=== PATIENT | female | born 1970 | race Caucasian/White ===

== ENCOUNTER 2017-03-30 10:35 | Inpatient (IN) | payer BC ==
[2017-03-30] MEDS ORDERED: ONDANSETRON HCL IV 4 MG/2 ML VIAL IVP ONE ×2 (11:07→13:29)
[2017-03-30] MEDS ORDERED: 0.9 % SODIUM CHLORIDE 1,000 ML BAG IV ONE (11:08)
[2017-03-30] MEDS ORDERED: PROMETHAZINE HCL 25 MG in 0.9 % SODIUM CHLORIDE 100ML 50 ML IVP ONE (11:09)
--- NOTE | 2017-03-30 11:17 | Emergency Department Record ---
History of Present Illness - General Chief complaint: Nausea, Vomiting, Diarrhea Stated complaint: ABD PAIN/VOMITING Time Seen by Provider: 03/30/17 11:07 Source: Patient, RN notes reviewed Mode of Arrival: Wheelchair - History of Present Illness Initial comments: epigastric abd pain and vomiting started at 7 am today. Diarrhea time 50 times since 7am. She smokes marijuana daily. Primary is Dr. Rober NOLASCO complaint: Abdominal pain, Vomiting Onset/Timin -: Hour(s) Description of Vomiting: Food contents, Watery, Other Associated Abdominal Pain: Yes Location: Epigastric Quality: Other Consistency: Constant Worsens with: None Associated Symptoms: Dysuria, Nausea/vomiting, Weakness - Related Data Home Medications Medication Instructions Recorded Confirmed Last Taken Lactobacillus Combination No.4 1 each PO DAILY cap 01/11/16 03/30/17 03/29/17 [Probiotic] Multivitamin [One Daily 1 each PO DAILY tab 01/11/16 03/30/17 03/29/17 Multivitamin] Insulin NPH Human Isophane 30 unit SQ BID 03/30/17 03/30/17 03/29/17 [Humulin N] Allergies Allergy/AdvReac Type Severity Reaction Status Date / Time No Known Allergies Allergy Unverified 01/24/16 16:43 Travel Screening - Travel/Exposure Within Last 30 Days Have you traveled within the last 30 days?: No - Travel/Exposure Within Last Year Have you traveled outside the [place] in the last year?: No - Additonal Travel Details Have you been exposed to anyone with a communicable illness?: No - Travel Symptoms Symptom Screening: None Review of Systems Reviewed: No additional complaints except as noted below Constitutional: Reports: As per HPI. Denies: Chills, Fever, Malaise, Night sweats, Weakness, Weight change Eyes: Reports: As per HPI. Denies: Eye discharge, Eye pain, Photophobia, Vision change ENT: Reports: As per HPI. Denies: Congestion, Dental pain, Ear pain, Epistaxis , Hearing loss, Throat pain Respiratory: Reports: As per HPI. Denies: Cough, Dyspnea, Hemoptysis, Stridor, Wheezes Cardiovascular: Reports: As per HPI. Denies: Arrhythmia, Chest pain, Dyspnea on exertion, Edema, Murmurs, Orthopnea, Palpitations, Paroxysmal nocturnal dyspnea, Rheumatic Fever, Syncope Endocrine: Reports: As per HPI. Denies: Fatigue, Heat or cold intolerance, Polydipsia, Polyuria Gastrointestinal: Reports: As per HPI, Abdominal pain, Diarrhea, Nausea, Vomiting. Denies: Constipation, Hematemesis, Hematochezia, Melena Genitourinary: Reports: As per HPI. Denies: Abnormal menses, Discharge, Dyspareunia, Dysuria, Frequency, Hematuria, Incontinence, Retention, Urgency Musculoskeletal: Reports: As per HPI. Denies: Arthralgia, Back pain, Gout, Joint swelling, Myalgia, Neck pain Skin: Reports: As per HPI. Denies: Bruising, Change in color, Change in hair/ nails, Lesions, Pruritus, Rash Neurological: Reports: As per HPI. Denies: Abnormal gait, Confusion, Headache, Numbness, Paresthesias, Seizure, Tingling, Tremors, Vertigo, Weakness Psychiatric: Reports: As per HPI. Denies: Anxiety, Auditory hallucinations, Depression, Homicidal thoughts, Suicidal thoughts, Visual hallucinations Hematological/Lymphatic: Reports: As per HPI. Denies: Anemia, Blood Clots, Easy bleeding, Easy bruising, Swollen glands Past Medical History - SOCIAL HISTORY Smoking Status: Former smoker Alcohol Use: Rare Drug Use: Heavy Drug Use Detail:: Marijuana - RESPIRATORY Hx Respiratory Disorders: No - CARDIOVASCULAR Hx Cardio Disorders: Yes Hx Hypertension: Yes - NEURO Hx Neuro Disorders: No - GI Hx GI Disorders: Yes Hx Irritable Bowel: Yes - Hx Genitourinary Disorders: Yes Hx Renal Disease: Yes - ENDOCRINE Hx Endocrine Disorders: Yes Hx Diabetes: Yes - MUSCULOSKELETAL Hx Musculoskeletal Disorders: No - PSYCH Hx Psych Problems: Yes Hx Anxiety: Yes Hx Depression: Yes Family Medical History Any Significant Family History?: No Physical Exam - General General Appearance: Alert, Oriented x3, Cooperative, Moderate distress - Head Head exam: Normal inspection - Eye Eye exam: Normal appearance, PERRL Pupils: Normal accommodation - ENT ENT exam: Normal exam, Mucous membranes moist, Normal external ear exam, Normal orophraynx, TM's normal bilaterally Ear exam: Normal external inspection. negative: External canal tenderness Nasal Exam: Normal inspection. negative: Discharge, Sinus tenderness Mouth exam: Normal external inspection, Tongue normal Teeth exam: Normal inspection. negative: Dental caries Throat exam: Normal inspection. negative: Tonsillar erythema, Tonsillar exudate - Neck Neck exam: Normal inspection, Full ROM. negative: Tenderness - Respiratory Respiratory exam: Normal lung sounds bilaterally. negative: Respiratory distress - Cardiovascular Cardiovascular Exam: Regular rate, Normal rhythm, Normal heart sounds - GI/Abdominal GI/Abdominal exam: Soft, Normal bowel sounds, Tenderness (right upper quad pain) . negative: Distended, Guarding, Rebound, Rigid - Rectal Rectal exam: Deferred - exam: Deferred - Extremities Extremities exam: Normal inspection, Full ROM, Normal capillary refill. negative: Tenderness - Back Back exam: Reports: Normal inspection, Full ROM. Denies: Muscle spasm, Rash noted, Tenderness - Neurological Neurological exam: Alert, Normal gait, Oriented X3, Reflexes normal - Psychiatric Psychiatric exam: Normal affect, Normal mood - Skin Skin exam: Dry, Intact, Normal color, Warm Course doing some better Medical Decision Making - Data Complexity MDM Data: Labs Ordered and/or Reviewed, X-Ray Ordered and/or Reviewed - Lab Data Result diagrams: 03/30/17 11:25 03/30/17 11:25 Disposition Clinical Impression: Right upper quadrant pain, Dehydration Vomiting Qualifiers: Vomiting type: unspecified Vomiting Intractability: intractable Nausea presence : with nausea Qualified Code(s): R11.2 - Nausea with vomiting, unspecified Diabetes Qualifiers: Diabetes mellitus type: type 1 Diabetes mellitus complication status: without complication Qualified Code(s): E10.9 - Type 1 diabetes mellitus without complications Decision to Admit: Admit from ER Condition: (2) Stable Forms: Patient Portal Access Time of Disposition: 17:37 Quality - Quality Measures Quality Measures: N/A - Blood Pressure Screening Does Patient Have Any of the Following: No Blood Pressure Classification: Pre-Hypertensive BP Reading Systolic Measurement: 176 Diastolic Measurement: 81 Screening for High Blood Pressure: < Pre-Hypertensive BP, F/U Documented > [ [id number]] Pre-Hypertensive Follow-up Interventions: Referral to alternative/primary care provider.
[2017-03-30] MEDS ORDERED: HYDROMORPHONE HCL 1MG/ML **SYRINGE IVP ONE ×2 (11:21→15:49)
[2017-03-30 11:28] LABS: BASO % 0.1 % (0-6); EOS % 0.2 % (0-6); HEMOGLOBIN 15.8 gm/dl (11.6-16.0); LYMPH % 5.9 % (16-45); MEAN CELL VOLUME 86.6 fl (81-97); MEAN CORPUSCULAR HEMOGLOBIN 29.8 pg (27-33); MEAN CORPUSCULAR HGB CONC 34.3 g/dl (32-36); MEAN PLATELET VOLUME 10.8 fl (7.4-10.4); MONO % 2.8 % (0-9); PLATELET COUNT 411 K/uL (130-400); RED BLOOD COUNT 5.31 M/uL (3.80-5.40); RED CELL DISTRIBUTION WIDTH 12.6 % (11.5-14.5)
[2017-03-30 11:32] LABS: WHITE BLOOD COUNT W/O DIFF 33.2 K/uL (4.2-12.2)
[2017-03-30 11:40] LABS: ALBUMIN 5.4 gm/dL (3.5-5.0); ALKALINE PHOSPHATASE 86 U/L (38-126); ALT/SGPT 33 U/L (9-52); ANION GAP 22.2 (7-16); AST/SGOT 20 U/L (14-36); BILIRUBIN,TOTAL 0.69 mg/dL (0.2-1.3); BLOOD UREA NITROGEN 16 mg/dL (7-17); CARBON DIOXIDE 13.8 mmol/L (22-30); CREATININE 0.7 mg/dL (0.52-1.04); EST GLOMERULAR FILTRATION RATE > 60 ml/min; GLUCOSE,RANDOM 428 mg/dL (70-110); LIPASE 34 U/L (23-300); TOTAL PROTEIN 9.5 gm/dL (6.3-8.2)
[2017-03-30] MEDS ORDERED: HUMULIN R 100 UNIT/ML VIAL IV SCH (13:00)
[2017-03-30] MEDS ORDERED: SUGAMMADEX SODIUM 200 MG/2 ML VIAL IV ONE (14:00)
[2017-03-30 14:08] LABS: ACETONE,SERUM NEGATIVE (NEGATIVE)
[2017-03-30 14:44] LABS: URINE APPEARANCE SL CLOUDY; URINE BILIRUBIN NEGATIVE (NEGATIVE); URINE BLOOD NEGATIVE (NEGATIVE); URINE COLOR YELLOW; URINE KETONE 40 mg/dL (NEGATIVE); URINE LEUKOCYTE ESTERASE NEGATIVE (NEGATIVE); URINE NITRITE POSITIVE (NEGATIVE); URINE PROTEIN NEGATIVE (NEGATIVE); URINE UROBILINOGEN 0.2 E.U./dL (0.20 - 1.00)
[2017-03-30 14:45] LABS: URINE GLUCOSE (UA) >=1000 mg/dL (NEGATIVE)
[2017-03-30 14:48] LABS: HCG,QUALITATIVE URINE NEGATIVE (NEGATIVE)
[2017-03-30 14:55] LABS: URINE BACTERIA 1+; URINE EPITHELIAL CELLS 0 - 2 (FEW); URINE RBC NONE SEEN (NONE SEEN); URINE WBC NONE SEEN (0-2/hpf)
[2017-03-30] MEDS ORDERED: METOCLOPRAMIDE HCL 10 MG/2 ML VIAL IVP ONE (15:49)
[2017-03-30] MEDS ORDERED: 0.9 % SODIUM CHLORIDE 1000ML 1,000 ML IV PRN (15:54)
[2017-03-30] MEDS ORDERED: ERTAPENEM SODIUM 1 G in 0.9 % SODIUM CHLORIDE 100ML 100 ML IVPB ONE (17:29)
[2017-03-30] MEDS ORDERED: SOD CHLOR 0.9% WITH KCL 40MEQ 40 MEQ/1,000 ML IV.SOLN IV ONE (17:34)
[2017-03-30] MEDS ORDERED: ONDANSETRON HCL IV 4 MG/2 ML VIAL IVP PRN (17:43)
[2017-03-30] MEDS ORDERED: HYDROMORPHONE HCL 1MG/ML **SYRINGE IVP PRN (17:43)
[2017-03-30] MEDS ORDERED: METOCLOPRAMIDE HCL 10 MG/2 ML VIAL IVP PRN (17:55)
[2017-03-30] MEDS ORDERED: VENLAFAXINE ER 75 MG CAPSULE PO SCH (18:00)
[2017-03-30] MEDS: POTASSIUM CHLORIDE/D5-0.9%NACL 20 MEQ/1,000 ML BAG IV SCH (21:03)
[2017-03-30] MEDS ORDERED: ZOLPIDEM TARTRATE 5 MG TABLET PO SCH (22:00)
[2017-03-31] MEDS: POTASSIUM CHLORIDE/D5-0.9%NACL 20 MEQ/1,000 ML BAG IV SCH ×2 (01:47→04:39)
[2017-03-31 06:26] LABS: BASO % 0.1 % (0-6); EOS % 1.6 % (0-6); GRAN % 77.4 % (47-80); HEMATOCRIT 34.8 % (35.0-47.0); LYMPH % 17.5 % (16-45); MEAN CELL VOLUME 87.7 fl (81-97); MEAN CORPUSCULAR HEMOGLOBIN 30.2 pg (27-33); MEAN CORPUSCULAR HGB CONC 34.5 g/dl (32-36); MONO % 3.4 % (0-9); PLATELET COUNT 303 K/uL (130-400); RED BLOOD COUNT 3.97 M/uL (3.80-5.40); RED CELL DISTRIBUTION WIDTH 12.5 % (11.5-14.5); WHITE BLOOD COUNT W/O DIFF 11.3 K/uL (4.2-12.2)
[2017-03-31 06:37] LABS: ANION GAP 5.9 (7-16); BLOOD UREA NITROGEN 8 mg/dL (7-17); CARBON DIOXIDE 21.1 mmol/L (22-30); CREATININE 0.5 mg/dL (0.52-1.04); EST GLOMERULAR FILTRATION RATE > 60 ml/min; GLUCOSE,RANDOM 232 mg/dL (70-110); LIPASE 129 U/L (23-300)
--- NOTE | 2017-03-31 07:15 | CT SCAN REPORT ---
EXAM: CT OF THE ABDOMEN AND PELVIS WITHOUT CONTRAST HISTORY: MID ABDOMINAL PAIN AND FLANK PAIN. TECHNIQUE: Routine noncontrast CT images of the abdomen and pelvis were obtained. Comparison: None. FINDINGS: The visualized lung bases are unremarkable. The liver, gallbladder, pancreas, spleen, and adrenals have a normal noncontrast appearance. No renal or ureteral calculi or hydronephrosis. There are a few scattered colonic diverticula without evidence of diverticulitis. The appendix has a normal noncontrast appearance. The bowel is normal in caliber. The bladder is unremarkable. The uterus is present. The aorta is normal in caliber. No abdominal or pelvic lymphadenopathy. No acute osseous abnormality. IMPRESSION: NO ACUTE INTRAABDOMINAL OR PELVIC ABNORMALITY. SPECIFICALLY, NO RENAL OR URETERAL CALCULI OR HYDRONEPHROSIS. JOB NUMBER: [id number] MTDD
[2017-03-31] MEDS: NOVOLOG FLEXPEN (INSULIN ASPART) 100 UNITS/ML SQ SCH ×3 (09:36→18:00)
[2017-03-31] MEDS ORDERED: IBUPROFEN 600 MG TABLET PO PRN (09:37)
[2017-03-31] MEDS ORDERED: VENLAFAXINE ER 75 MG CAPSULE PO SCH (10:00)
[2017-03-31] MEDS ORDERED: LISINOPRIL 5 MG TABLET PO SCH (10:00)
[2017-03-31] MEDS ORDERED: ROCURONIUM BROMIDE 50MG/5ML VIAL IV ONE (14:00)
[2017-03-31] MEDS ORDERED: LABETALOL HCL 5MG/ML, 20ML VIAL IVPB ONE (14:00)
[2017-03-31] MEDS ORDERED: DEXAMETHASONE 4 MG/ML 1ML VIAL IVP ONE (14:00)
[2017-03-31] MEDS ORDERED: DIPHENHYDRAMINE HCL 25 MG CAPSULE PO ONE (14:18)
--- NOTE | 2017-03-31 16:07 | History & Physical ---
History of Present Illness - Date of Service Date of Service for History & Physical: 03/31/17 - History of Present Illness Admitting Diagnosis: elevated wbc. right upper quad pain. diabetes mellitus uncontrolled. dehydration. vomiting. possible gastroparesis History of Present Illness: 46 y old female admitted for worsening RUQ pain. Admitted with an elevated WBC count and started on entapenem. Surgery consulted and patient was boarded for surgery on 03/31. Tolerated procedure well. Currently ensuring adequate pain control and advancing of diet prior to discharge. Travel Screening - Travel/Exposure Within Last 30 Days Have you traveled within the last 30 days?: No - Travel/Exposure Within Last Year Have you traveled outside the [place] in the last year?: No - Additonal Travel Details Have you been exposed to anyone with a communicable illness?: No - Travel Symptoms Symptom Screening: None Review of Systems Constitutional: Reports: As per HPI. Denies: Chills, Fever, Malaise, Night sweats, Weakness, Weight change Eyes: Reports: As per HPI. Denies: Eye discharge, Eye pain, Photophobia, Vision change ENT: Reports: As per HPI. Denies: Congestion, Dental pain, Ear pain, Epistaxis , Hearing loss, Throat pain Respiratory: Reports: As per HPI. Denies: Cough, Dyspnea, Hemoptysis, Stridor, Wheezes Cardiovascular: Reports: As per HPI. Denies: Arrhythmia, Chest pain, Dyspnea on exertion, Edema, Murmurs, Orthopnea, Palpitations, Paroxysmal nocturnal dyspnea, Rheumatic Fever, Syncope Endocrine: Reports: As per HPI. Denies: Fatigue, Heat or cold intolerance, Polydipsia, Polyuria Gastrointestinal: Reports: As per HPI, Abdominal pain, Diarrhea, Nausea, Vomiting. Denies: Constipation, Hematemesis, Hematochezia, Melena Genitourinary: Reports: As per HPI. Denies: Abnormal menses, Discharge, Dyspareunia, Dysuria, Frequency, Hematuria, Incontinence, Retention, Urgency Musculoskeletal: Reports: As per HPI. Denies: Arthralgia, Back pain, Gout, Joint swelling, Myalgia, Neck pain Skin: Reports: As per HPI. Denies: Bruising, Change in color, Change in hair/ nails, Lesions, Pruritus, Rash Neurological: Reports: As per HPI. Denies: Abnormal gait, Confusion, Headache, Numbness, Paresthesias, Seizure, Tingling, Tremors, Vertigo, Weakness Psychiatric: Reports: As per HPI. Denies: Anxiety, Auditory hallucinations, Depression, Homicidal thoughts, Suicidal thoughts, Visual hallucinations Hematological/Lymphatic: Reports: As per HPI. Denies: Anemia, Blood Clots, Easy bleeding, Easy bruising, Swollen glands Past Medical History - SOCIAL HISTORY Smoking Status: Former smoker Alcohol Use: None - RESPIRATORY Hx Respiratory Disorders: No - CARDIOVASCULAR Hx Cardio Disorders: Yes Hx Hypertension: Yes - NEURO Hx Neuro Disorders: No - GI Hx GI Disorders: Yes Hx Irritable Bowel: Yes - Hx Genitourinary Disorders: No - ENDOCRINE Hx Endocrine Disorders: Yes Hx Diabetes: Yes Comment:: CHECKS BLOOD SUGARS 5X/DAY - MUSCULOSKELETAL Hx Musculoskeletal Disorders: No - PSYCH Hx Psych Problems: Yes Hx Anxiety: Yes Hx Depression: Yes - HEMATOLOGY/ONCOLOGY Hx Hematology/Oncology Disorders: No Family Medical History Any Significant Family History?: No H&P Meds/Allergies - Allergies Allergies: Allergies Allergy/AdvReac Type Severity Reaction Status Date / Time No Known Allergies Allergy Unverified 01/24/16 16:43 - Home Medications Home Medications Medication Instructions Recorded Confirmed Last Taken Insulin NPH Human Isophane 30 unit SQ 0700,2200 03/30/17 03/31/17 03/29/17 [Humulin N] Lisinopril [Zestril] 5 mg PO DAILY 03/31/17 03/31/17 Unknown - Active Medications Active Medications: Current Medications Hydromorphone HCl (Dilaudid) 1 mg IVP Q4HR PRN PRN Reason: Analgesia Last Admin: 03/31/17 09:48 Dose: 1 mg Potassium Chloride/Dextrose/Sod Cl () 20 meq in 1,000 mls @ 125 mls/hr IV Q8H RAI Last Admin: 03/31/17 04:39 Dose: 125 mls/hr Ertapenem 1 g/ Sodium Chloride 100 mls @ 200 mls/hr IVPB Q24H RAI Ibuprofen (Motrin 600mg) 600 mg PO Q6H PRN PRN Reason: Pain - Moderate (5-7) Insulin Aspart (Novolog Flexpen) 1 unit SQ TIDINS RAI PRN Reason: Protocol Last Admin: 03/31/17 14:31 Dose: Not Given Lisinopril (Zestril) 5 mg PO DAILY [facility] Metoclopramide HCl (Reglan) 10 mg IVP Q6H PRN PRN Reason: GI UPSET Last Admin: 03/31/17 02:50 Dose: 10 mg Ondansetron HCl (Zofran) 4 mg IVP Q4H PRN PRN Reason: NAUSEA Venlafaxine HCl (Effexor Xr) 75 mg PO DAILY [facility] Zolpidem Tartrate (Ambien) 10 mg PO QHS [facility] Last Admin: 03/30/17 21:02 Dose: 10 mg Physical Exam - Vital Signs Vital Signs: Vital Signs - Last 24 Hrs Temp Pulse Resp BP BP Pulse Ox 03/31/17 14:35 96 H 14 148/78 100 03/31/17 14:20 101 H 16 161/90 99 03/31/17 14:05 98.1 F 97 H 14 154/79 99 03/31/17 13:50 97.8 F 92 H 14 151/84 100 03/31/17 10:55 97.8 F 98 H 18 154/86 96 03/31/17 06:00 98.5 F 96 H 18 142/80 96 03/31/17 00:30 98.7 F 103 H 18 107/55 96 03/30/17 21:00 98.1 F 97 H 18 145/82 98 - General General Appearance: Alert, Oriented x3, Cooperative, Moderate distress - Head Head exam: Normal inspection - Eye Eye exam: Normal appearance, PERRL Pupils: Normal accommodation - ENT ENT exam: Normal exam, Mucous membranes moist, Normal external ear exam, Normal orophraynx, TM's normal bilaterally Ear exam: Normal external inspection. negative: External canal tenderness Nasal Exam: Normal inspection. negative: Discharge, Sinus tenderness Mouth exam: Normal external inspection, Tongue normal Teeth exam: Normal inspection. negative: Dental caries Throat exam: Normal inspection. negative: Tonsillar erythema, Tonsillar exudate - Neck Neck exam: Normal inspection, Full ROM. negative: Tenderness - Respiratory Respiratory exam: Normal lung sounds bilaterally. negative: Respiratory distress - Cardiovascular Cardiovascular Exam: Regular rate, Normal rhythm, Normal heart sounds - GI/Abdominal GI/Abdominal exam: Soft, Normal bowel sounds, Tenderness (right upper quad pain) . negative: Distended, Guarding, Rebound, Rigid - Rectal Rectal exam: Deferred - exam: Deferred - Extremities Extremities exam: Normal inspection, Full ROM, Normal capillary refill. negative: Tenderness - Back Back exam: Reports: Normal inspection, Full ROM. Denies: Muscle spasm, Rash noted, Tenderness - Neurological Neurological exam: Alert, Normal gait, Oriented X3, Reflexes normal - Psychiatric Psychiatric exam: Normal affect, Normal mood - Skin Skin exam: Dry, Intact, Normal color, Warm Results - Labs Result Diagrams: 03/31/17 06:13 03/31/17 06:13 Labs Last 24 Hours: Laboratory Results - last 24 hr 03/31/17 03/31/17 03/31/17 00:30 06:13 06:13 WBC 11.3 RBC 3.97 Hgb 12.0 Hct 34.8 L MCV 87.7 MCH 30.2 MCHC 34.5 RDW 12.5 Plt Count 303 MPV 10.0 Gran % 77.4 Lymphocytes % 17.5 Monocytes % 3.4 Eosinophils % 1.6 Basophils % 0.1 Sodium 139 Potassium 3.6 Chloride 112 H Carbon Dioxide 21.1 L Anion Gap 5.9 L BUN 8 Creatinine 0.5 L Estimated GFR > 60 POC Glucose 212 H Random Glucose 232 H Calcium 7.6 L Lipase 129 03/31/17 11:30 WBC RBC Hgb Hct MCV MCH MCHC RDW Plt Count MPV Gran % Lymphocytes % Monocytes % Eosinophils % Basophils % Sodium Potassium Chloride Carbon Dioxide Anion Gap BUN Creatinine Estimated GFR POC Glucose 177 H Random Glucose Calcium Lipase Plan - Inpatient Certification Inpatient Certification: Admit to inpatient care: Based on my medical assessment, after consideration of patient's risk factors (age, co-morbidities and patient presenting symptoms and acuity), I expect that this patient will remain in the hospital greater than or equal to two midnights and that the services needed warrant inpatient care because: Patient Risk Factors: [] Estimated length of stay: [] The patient may reasonably be expected to be discharged or transferred to a hospital within 96 hours after admission to [facility]. Services needed: [] Post hospital care (if known): [] I certify that my determination is in accordance with my understanding of Medicare requirements for reasonable and necessary inpatient services. - Detailed Diagnosis and Plan (1) Cholecystitis Current Visit: Yes Status: Acute Base Code: K81.9 - CHOLECYSTITIS, UNSPECIFIED Priority: High Comment: 03/31- had cholestectomy on 03/[address] ashraf. WBC improved with entrapenem. will keep to ensure can tolerate diet and has adequate pain control.
[2017-03-31] MEDS ORDERED: HYDROCODONE/APAP 5/325MG TABLET PO PRN (16:51)
--- NOTE | 2017-03-31 17:10 | Discharge Note ---
VTE H&P Assessment - Risk for VTE Risk for VTE: Yes Risk Level: Very Low Risk Assessment Date: 03/31/17 Risk Assessment Time: 17:05 VTE Orders Placed or Will Be Placed: No VTE Reason for No Prophylaxis: Not Indicated (post surgical and going home) Discharge Medications - Discharge Medications Prescriptions: Hydrocodone/Acetaminophen [[place] 5-325 Tablet] 1 each PO Q6HR #30 tablet Home Medications: Ambulatory Orders Insulin NPH Human Isophane [Humulin N] 30 unit SQ 0700,2200 03/30/17 [Last Taken 03/29/17] Hydrocodone/Acetaminophen [[place] 5-325 Tablet] 1 each PO Q6HR #30 tablet [Last Taken Unknown] Lisinopril [Zestril] 5 mg PO DAILY 03/31/17 [Last Taken Unknown] Discharge Note - Date Date of Discharge Note: 03/31/17 Condition: (2) Stable Additional Instructions: follow up with dr. Richter in one week Follow up with Dr. Bedolla as scheduled in about 2 weeks check glucose 4 times a day and balance with regular insulin and when eating restart insulin N . continue home meds Referrals: FRANKLIN BA M.D. [Primary Care Provider] - Forms: Patient Portal Access Activity at Discharge: Increase Activity as Tolerated
[2017-03-31] MEDS ORDERED: BUPIVACAINE 0.25% W/EPI MPF 30ML VIAL IVP ONE (17:57)
[2017-03-31] MEDS ORDERED: ONDANSETRON HCL IV 4 MG/2 ML VIAL IVP ONE (17:57)
[2017-03-31] MEDS ORDERED: LIDOCAINE 2% MDV (20MG/ML) 20ML VIAL IV ONE (17:57)
[2017-03-31] MEDS ORDERED: KETOROLAC 30 MG/ML VIAL IVP ONE (17:57)
[2017-03-31] MEDS ORDERED: HYDROMORPHONE HCL 2 MG/ML VIAL IV ONE (17:57)
[2017-03-31] MEDS ORDERED: PROPOFOL 10 MG/ML VIAL IV ONE (17:57)
[2017-03-31] MEDS ORDERED: MIDAZOLAM HCL 2MG/2ML VIAL IV ONE (17:57)
[2017-03-31] MEDS ORDERED: ERTAPENEM SODIUM 1 G in 0.9 % SODIUM CHLORIDE 100ML 100 ML IVPB SCH (18:00)
--- NOTE | 2017-04-01 07:21 | ULTRASOUND REPORT ---
EXAM: COMPLETE ABDOMEN ULTRASOUND HISTORY: RIGHT UPPER QUADRANT PAIN OFF AND ON FOR A FEW YEARS, WORSE YESTERDAY. TECHNIQUE: Complete real-time ultrasound examination of the abdomen was obtained. Comparison: No prior abdomen ultrasound with which to compare. FINDINGS: The billet bed operator notes that the study was somewhat limited by the patient's large body habitus. The visualized pancreas appeared negative for no pancreatic mass or peripancreatic fluid collection evident, however, portions of the tail in particular were obscured by overlying bowel content. The abdominal aorta appears negative with no aneurysm evident. The IVC was negative as seen. No focal hepatic mass or intrahepatic biliary dilatation seen. There is some coarsening of the hepatic parenchymal echogenicity suggesting some diffuse fatty infiltration of the liver. The right kidney measures 12.9 cm in length with no hydronephrosis evident. The common duct was seen and was of normal caliber. There do appear to be some tiny echogenic foci in the dependent portion of the gallbladder. There also appears to be some shadowing associated with these and the billet bed operator did note that there was some movement when the patient was placed in the RPO position. These apparently therefore represent some small gallstones. No diffuse gallbladder wall thickening was seen and the billet bed operator indicates a negative sonographic Medel's sign. No pericholecystic fluid collection evident. The left kidney measures 12.7 cm in length with no hydronephrosis evident. The spleen appears negative as seen, partially obscured by overlying rib artifact. IMPRESSION: 1. CHOLELITHIASIS, HOWEVER, NO ADDITIONAL FINDINGS SEEN TO CLEARLY INDICATE ACUTE CHOLECYSTITIS CURRENTLY. 2. COARSENED ECHOGENICITY OF THE LIVER SUGGESTING SOME DIFFUSE FATTY INFILTRATION OF THE LIVER. 3. THE REMAINDER OF THE ABDOMINAL ULTRASOUND APPEARED NEGATIVE. NO HYDRONEPHROSIS EVIDENT. JOB NUMBER: [id number] [facility]
--- NOTE | 2017-04-01 09:40 | History and Physical Report ---
CHIEF COMPLAINT: Right upper quadrant abdominal pain, vomiting, diabetes mellitus, hypokalemia. HISTORY OF PRESENT ILLNESS: This 46-year-old female presented to the emergency department with right upper quadrant abdominal pain and excessive vomiting. White count was elevated in the emergency department at 33,000 and she was vomiting profusely all day. She was evaluated in the emergency department by me with a diagnosis of right upper quadrant abdominal pain, dehydration, diabetes mellitus type 1. Admitted to the hospital for an ultrasound and surgical consult with Dr. Bedolla. Concerned about possible gallstone colic or possibly acute cholecystitis. The CT scan in the emergency department was unremarkable. Ultrasound of the abdomen is ordered for the morning. PAST MEDICAL HISTORY: Diabetes mellitus type 1, hypertension, GERD, irritable bowel syndrome, anxiety and depression, chronic low back pain. PAST SURGICAL HISTORY: Carpal tunnel surgery, breast reduction. MEDICATIONS: On admission: 1. Lisinopril 5 mg daily. 2. Humulin N 30 units b.i.d. 3. Ambien 10 mg at h.s. 4. Effexor 75 mg daily. 5. She also uses Regular insulin to balance her sugars before meals. She states that she has both Regular and N insulin at home. ALLERGIES: No known allergies. FAMILY PYSCHOSOCIAL HISTORY: Unremarkable. She does use marijuana for medical marijuana purposes of low back pain. Denies any alcohol or other illegal drugs. REVIEW OF SYSTEMS: HEENT: No upper respiratory infection symptoms, cough, cold, or congestion. Cardiovascular: No chest pain, palpitations, or arrhythmia. Respiratory: No cough, cold, or congestion. Gastrointestinal: See Chief Complaint. She was vomiting excessively when she came into the emergency department. No diarrhea. Right upper quadrant abdominal pain. Genitourinary: No dysuria, hematuria, frequency, or burning on urination. Musculoskeletal: She has chronic low back pain using medical marijuana and otherwise no other acute arthritic problems. Neurological: No CVA, paralysis, or paresthesias. ROVING WINDER: No lumps in her breasts or abnormal vaginal bleeding. Endocrine: She has diabetes mellitus type 1. She has some kidney complications with her diabetes. Rash. No skin ulcer, change in moles, or yellow skin. PHYSICAL EXAMINATION: VITALS: Height 5 feet, weight 163 pounds. Temperature 98.1, pulse 97, blood pressure 154/79, respiratory rate 14, pulse ox 99% on room air. HEENT: Pupils are equal, round, and reactive to light and accommodation. Extraocular muscles are intact. Throat is clear. Nose is clear. Tympanic membranes are camacho. NECK: Supple. No jugular venous distention. No hepatojugular reflux. No carotid bruits. Thyroid is smooth. CARDIOVASCULAR: Regular rate and rhythm without murmurs, clicks, rubs, or gallops. RESPIRATORY: Clear to auscultation and percussion. ABDOMEN: Soft. Pain in the right upper quadrant. No rebound or rigidity. EXTREMITIES: No pitting edema. No cyanosis, no clubbing. Full range of motion. Peripheral pulses are good. BREASTS: Exam deferred. GYNECOLOGICAL: Exam deferred. RECTAL: Exam deferred. NEUROLOGIC: Cranial nerves II-XII intact. No gross defects. Sensation normal, strength normal. Deep tendon reflexes equal bilaterally with Babinski negative. MENTAL STATUS: Alert and oriented x3. IMPRESSION: 1. Vomiting excessively. 2. Right upper quadrant abdominal pain, possible gallbladder disease. 3. Diabetes mellitus type 2. 4. Hypokalemia. 5. Dehydration. PLAN: Admit to the hospital. Dr. Bedolla consult. Ultrasound of the abdomen. Fluids. Reglan. Pain control. MTDD
--- NOTE | 2017-04-02 13:51 | Medical Records Consult ---
DATE OF CONSULTATION: 03/31/2017 REASON FOR CONSULTATION: Abdominal pain. INDICATIONS: The patient is a 46-year-old female who states she has had a 1-year history of recurrent epigastric and right subcostal pain. She stated she usually vomits and it goes away. Last night she said it followed the same course; however, the pain got so intense that she could not stand it and therefore was brought to the emergency department at [place]. Here, a full workup was done which included laboratory values and CT scan. This did show a white count of 33,000. CT scan is essentially negative for any acute pathology. She stated that she had the dry heaves overnight but this did settle down this morning. She states that currently she feels well. She is not really hungry but the pain has subsided. She said when the pain comes on, it does radiate between her shoulder blades and her right flank. Ultrasound this morning did reveal cholelithiasis without evidence of acute cholecystitis. Recheck of her labs revealed the white count came down to normal range at 11.3. Her liver function tests were all normal. She does have a history of diabetes, which sounds like it is uncontrolled. She has never had an upper or lower scope. PAST MEDICAL HISTORY: Significant for diabetes, hypercholesterolemia. PAST SURGICAL HISTORY: Carpal tunnel surgery. CURRENT MEDICATIONS: 1. Probiotics. 2. Multivitamin. 3. Insulin. ALLERGIES: No known medical allergies. SOCIAL HISTORY: Denies any tobacco or alcohol usage. She is a former smoker. PHYSICAL EXAMINATION: VITAL SIGNS: Stable. She is afebrile. HEART: Regular rate and rhythm. LUNGS: Decreased. ABDOMEN: Soft, obese with mild right subcostal tenderness with deep palpation. EXTREMITIES: No trace of edema. RADIOGRAPHIC DATA: I did review her imaging. IMPRESSION AND PLAN: Abdominal pain with nausea and vomiting. I believe this is multifactorial. Her gallbladder certainly could be playing a role with recurrent biliary colic. She also may be having issues with diabetic gastroparesis. At this point we had a long discussion and gave her options of cholecystitis versus ongoing medical management versus further workup with upper endoscopy. She strongly desires cholecystitis. Risks, benefits, and alternatives were discussed. Risks include bleeding, infection, ductal injury, possible conversion to open, postoperative bile leak, and nonresolution of her symptoms. She understands this fully. This will be scheduled for later today. Thank you for this referral. SARITHA
--- NOTE | 2017-04-02 14:00 | Discharge Summary ---
DATE: 03/31/2017 DISCHARGE DIAGNOSES: 1. Right upper quadrant abdominal pain. 2. Biliary colic. 3. Gallstone disease of the gallbladder. 4. Status post diabetes mellitus type 1. 5. Hypokalemia, resolved. 6. Vomiting, resolved. ATTENDING PHYSICIAN: Ovidio Garcia DO REASON FOR HOSPITALIZATION: Vomiting, severe right upper quadrant pain, white count of 33,000, concern for gallbladder disease. CT scan was negative. Ultrasound was ordered. The patient was admitted with 1 g of Invanz IV given in the emergency department and a surgical consult for Dr. Bedolla. SIGNIFICANT FINDINGS: The ultrasound of the gallbladder showed gallstones in the pancreas. The patient was feeling much better. The white count dropped to 11,000 on the day of surgery on the next day. Most likely the elevated white count is from excessive vomiting. The patient will have the gallstones out, and Dr. Bedolla took her to surgery and removed the gallbladder without complications. The patient is feeling like she would like to go home. She does not want to stay excessively in the hospital. Discussed the benefits and risks of going home versus staying in the hospital. She still wants to go home. THERAPY PROVIDED: Pain control and she is eating pudding prior to discharge. She is to check her sugars 4 times a day before meals and at bedtime and balance with her regular insulin she has at home. Once she starts eating more completely, she can start her N back up twice a day as she has before and checking her sugars 4 times a day diligently for the next week. Follow up with Dr. Lobo and Dr. Bedolla. HOSPITAL COURSE: Improved. CONDITION ON DISCHARGE: Much improved. DISCHARGE INSTRUCTIONS: Follow up with Dr. Lobo in 1 week. Follow up with Dr. Bedolla in 2 weeks as scheduled. Continue her regular insulin to balance before meals and at bedtime, or 4 times a day. Once her diet comes back, start her insulin N back up twice a day. Pain control with [place] 5 mg 1-2 q.6 h. Continue her home medications of insulin N 30 twice a day, lisinopril 5 mg a day, Ambien 10 mg at h.s., and Effexor XR 75 mg a day. [facility]
--- NOTE | 2017-04-03 10:50 | Operative Note ---
DATE OF SURGERY: 03/31/2017 Surgeon: Emerson Bedolla DO PREOPERATIVE DIAGNOSIS: Cholelithiasis with chronic cholecystitis. POSTOPERATIVE DIAGNOSIS: Cholelithiasis with chronic cholecystitis. OPERATION: Laparoscopic cholecystectomy. Indication: The patient is a 46-year-old female who has had a recent history of ongoing right subcostal postprandial pain. She has postprandial nausea and vomiting. This got so bad last night she was brought into the [facility] ER. She had a 33,000 white blood cell count. CT scan was done which was essentially normal. Ultrasound did show cholelithiasis without evidence of acute cholecystitis. After talking to her, it seemed like she had issues with biliary colic. I did feel her abdominal pain was probably multifactorial with her uncontrolled diabetes playing a role as well. We did discuss cholecystectomy versus medical management. She desired surgical intervention. Risks include but are not limited to bleeding, infection, ductal injury, possible conversion to open, postoperative bile leak, nonresolution of her symptoms. She understood this fully. Thereafter, consent signed, questions answered. PROCEDURE: The patient was taken to the operating room and placed in a supine position. General anesthesia was administered per the department of anesthesia. The patient's abdomen was prepped and draped in the usual sterile fashion. The infraumbilical region was anesthetized with a total of 2 mL of 0.25% Sensorcaine with epinephrine. A 2 cm infraumbilical incision was made. This was carried down to the anterior rectus fascia. This was incised. Mayra clamps were placed on the fascial edges and brought up into the wound. Stay sutures of 0 Vicryl were placed. Posterior rectus sheath was identified and incised. The peritoneal cavity was entered bluntly. At this time a 10 mm blunt Brandon port was placed. Adequate pneumoperitoneum was established. Under direct visualization, additional 5 mm epigastric and two 5 mm right subcostal ports were placed. The patient was rotated to reverse Trendelenburg with rotation to the left. The gallbladder was identified and noted to be edematous consistent with cholecystitis. This was lifted in a cephalad and lateral direction over the angle of Calot. The hepatocystic triangle was thoroughly dissected out. We did release the distal half of the gallbladder from the cystic plate extending our retroductal space. There was no aberrant anatomy, no posterior ductal structures. The cystic duct and cystic artery were clearly identified. Each one was circumferentially dissected out in a 360-degree fashion. The cystic artery was taken down with Emanuel harmonic. Cystic duct was triply clipped and cut in a standard fashion. The gallbladder was taken off the liver bed with the Emaneul harmonic. This was extracted infraumbilically. Right upper quadrant was then rechecked and found to be hemostatic. No bleeding. No bile leak. No bowel injury noted. The patient was leveled out. The pneumoperitoneum was released. All ports were removed. The fascia was closed with 0 Vicryl in a [id number] fashion. The skin at all 4 ports was closed with 4-0 Vicryl. She was taken to the recovery room in satisfactory condition FINDINGS AT THE TIME OF SURGERY: Chronic cholecystitis. CC: Dr. Lashell MELARA
== END 2017-03-31 17:58 | disposition home or self-care (01) | DRG 419 ==
LOC: ER 10:35 → UNDOADMIN 18:19 → MEDSURG 18:19
PROVIDERS: ADMIT Emergency Medicine; ATTEND Emergency Medicine
PROC: 0FT44ZZ Resection of Gallbladder, Percutaneous Endoscopic Approach (ICD-10-PCS; principal; 2017-03-30)
DX: K80.10 Calculus of gallbladder with chronic cholecystitis without obstruction (principal); E11.65 Type 2 diabetes mellitus with hyperglycemia; Z79.4 Long term (current) use of insulin; E87.6 Hypokalemia; E86.0 Dehydration; I10 Essential (primary) hypertension
CPT/HCPCS: 36416; 74176; 76700; 80048; 80076; 81001; 81025; 82009; 82948; 83690; 85025; 85027; 87040; 96361; 96365; 96375; 96376; 99223; 99239; 99285; J1170; J1885; J2405; J2550; J2765; J3480; J3490; J7030

== ENCOUNTER 2019-05-20 01:53 | Observation (INO) | payer OTHER ==
[2019-05-20] MEDS ORDERED: 0.9 % SODIUM CHLORIDE 1,000 ML BAG IV ONE (01:59)
[2019-05-20] MEDS ORDERED: ONDANSETRON HCL IV 4 MG/2 ML VIAL IVP ONE (01:59)
[2019-05-20] MEDS ORDERED: DIPHENHYDRAMINE HCL 50 MG/ML VIAL IVP ONE (02:02)
[2019-05-20] MEDS ORDERED: PROMETHAZINE HCL 25 MG/ML VIAL IVP ONE ×2 (02:02→03:06)
--- NOTE | 2019-05-20 02:07 | Emergency Department Record ---
History of Present Illness - General Chief complaint: Vomiting Stated complaint: VOMITING Time Seen by Provider: 05/20/19 01:54 Source: Patient, Family Mode of Arrival: Ambulatory Limitations: No limitations - History of Present Illness Initial comments: 49 yo female presents with nausea, vomiting and diarrhea that started around 5pm. She states she had a significant amount of both vomiting and diarrhea. She states she had felt normal prior to the onset. She is a diabetic. Her glucose earlier in the day was about 150 then 300 later. She took Zofran without any control of the vomiting. She denies fever. No blood in the vomit. She reports she has had her gall bladder out in the 2017. No recent antibiotics. No known sick contacts. She does have a history of gastropareis as well. She had a recent admission to [facility] in late March or early April for vomiting and diarrhea and was told she had DKA with colitis. She was treated with an antibiotic at that time. She is a patient of the [facility]. MD complaint: Abdominal pain, Diarrhea, Nausea, Vomiting -: Hour(s) (6) Description of Vomiting: Watery Description of Diarrhea: Water Location: Diffuse Radiation: None Severity: Severe Quality: Cramping Improves with: None Worsens with: Eating Context: Other Associated Symptoms: Loss of appetite, Nausea/vomiting - Related Data Allergies Allergy/AdvReac Type Severity Reaction Status Date / Time morphine AdvReac VOMITING Verified 05/20/19 02:04 Review of Systems Constitutional: Denies: Chills, Fever, Malaise, Weakness Eyes: Denies: Eye discharge ENT: Denies: Congestion, Throat pain Respiratory: Denies: Cough, Dyspnea, Hemoptysis, Wheezes Cardiovascular: Denies: Chest pain, Dyspnea on exertion, Palpitations, Syncope Endocrine: Denies: Fatigue, Polydipsia, Polyuria Gastrointestinal: Reports: Abdominal pain, Diarrhea, Nausea, Vomiting Genitourinary: Denies: Dysuria, Frequency Musculoskeletal: Denies: Arthralgia, Back pain, Neck pain Neurological: Denies: Headache, Weakness Psychiatric: Denies: Anxiety Hematological/Lymphatic: Denies: Easy bleeding, Easy bruising Past Medical History - SOCIAL HISTORY Smoking Status: Former smoker - RESPIRATORY Hx Respiratory Disorders: No - CARDIOVASCULAR Hx Cardio Disorders: Yes Hx Hypertension: Yes - NEURO Hx Neuro Disorders: No - GI Hx GI Disorders: Yes Hx Irritable Bowel: Yes - Hx Genitourinary Disorders: No - ENDOCRINE Hx Endocrine Disorders: Yes Hx Diabetes: Yes Comment:: CHECKS BLOOD SUGARS 5X/DAY - MUSCULOSKELETAL Hx Musculoskeletal Disorders: No - PSYCH Hx Psych Problems: Yes Hx Anxiety: Yes Hx Depression: Yes - HEMATOLOGY/ONCOLOGY Hx Hematology/Oncology Disorders: No Physical Exam - General General Appearance: Alert, Oriented x3, Cooperative, No acute distress Limitations: No limitations - Head Head exam: Atraumatic, Normal inspection - Eye Eye exam: Normal appearance, PERRL. negative: Conjunctival injection, Scleral icterus - ENT ENT exam: Normal exam, Mucous membranes moist Ear exam: Normal external inspection Nasal Exam: Normal inspection Mouth exam: Normal external inspection - Neck Neck exam: Normal inspection - Respiratory Respiratory exam: Normal lung sounds bilaterally. negative: Respiratory distress, Rhonchi, Stridor, Wheezes - Cardiovascular Cardiovascular Exam: Normal rhythm, Normal heart sounds, Tachycardia - GI/Abdominal GI/Abdominal exam: Soft, Tenderness (mild diffuse tenderness but actively vomiting on initial examination). negative: Distended, Guarding, Rebound, Rigid - Rectal Rectal exam: Deferred - exam: Deferred - Extremities Extremities exam: Normal inspection - Back Back exam: Denies: CVA tenderness (R), CVA tenderness (L) - Neurological Neurological exam: Alert, Oriented X3 - Psychiatric Psychiatric exam: Normal affect, Normal mood - Skin Skin exam: Dry, Intact, Normal color, Warm Course - Reevaluation(s) Reevaluation #1: 05/20/19 02:23 Venous pH is 7.46 05/20/19 02:41 CBC reviewed. WBC is 19 05/20/19 02:59 CMP reviewed. K is 3.3 AG is 24 HCO3 17 Negative acetone 05/20/19 03:03 Glucose is 345 Lipase is normal 05/20/19 03:06 The vomiting has stopped at this time. Her nausea is improved but still present 05/20/19 03:36 The patient states she is still having pain. CT ordered given the pain and elevated WBC count. 05/20/19 04:10 The patient states the nausea and pain are now better controlled. 05/20/19 05:[address] was reviewed. Diffuse colonic wall thickening with pancolitis. No pneumatosis. No free air or fluid. Her nausea persists. I recommend admission at this time. Medical Decision Making - Lab Data Result diagrams: 05/20/19 02:25 05/20/19 02:25 Disposition Disposition: Admit Clinical Impression: Dehydration, Hyperglycemia, Colitis Vomiting Qualifiers: Vomiting type: unspecified Vomiting Intractability: unspecified Nausea presence: unspecified Qualified Code(s): R11.10 - Vomiting, unspecified Diarrhea Qualifiers: Diarrhea type: unspecified type Qualified Code(s): R19.7 - Diarrhea, unsp ecified Decision to Admit: Admit from ER Decision to Admit Date: 05/20/19 Decision to Admit Time: 05:03 Condition: (2) Stable Forms: Patient Portal Access Quality - Quality Measures Quality Measures: N/A - Blood Pressure Screening Does Patient Have Any of the Following: Active Dx of HTN Blood Pressure Classification: Hypertensive Reading Systolic Measurement: 192 Diastolic Measurement: 93 Screening for High Blood Pressure: Patient Exclusion, Hx of HTN [[id number]] Pre-Hypertensive Follow-up Interventions: Referral to alternative/primary care provider.
[2019-05-20 02:31] LABS: ABSOLUTE NEUTROPHIL COUNT 17.92; BASO % 0.1 % (0-6); EOS % 0.3 % (0-6); HEMATOCRIT 41.5 % (35.0-47.0); LYMPH % 5.2 % (16-45); MEAN CELL VOLUME 88.1 fl (81-97); MEAN CORPUSCULAR HEMOGLOBIN 29.7 pg (27-33); MEAN CORPUSCULAR HGB CONC 33.7 g/dl (32-36); MEAN PLATELET VOLUME 9.4 fl (7.4-10.4); MONO % 3.4 % (0-9); PLATELET COUNT 355 K/uL (130-400); RED BLOOD COUNT 4.71 M/uL (3.80-5.40); RED CELL DISTRIBUTION WIDTH 12.5 % (11.5-14.5); WHITE BLOOD COUNT W/O DIFF 19.7 K/uL (4.2-12.2)
[2019-05-20 02:42] LABS: BLOOD UREA NITROGEN 18 mg/dL (6-20); CREATININE 0.5 mg/dL (0.5-0.9); EST GLOMERULAR FILTRATION RATE > 60 mL/min
[2019-05-20 02:43] LABS: TOTAL PROTEIN 7.6 g/dL (6.6-8.7)
[2019-05-20 02:45] LABS: GLUCOSE,RANDOM 345 mg/dL (74-109)
[2019-05-20 02:48] LABS: ALB/GLOB RATIO 1.5 (1.1-1.8); ALBUMIN 4.5 g/dL (4.0-5.0); ALKALINE PHOSPHATASE 49 U/L (35-104); ALT/SGPT 19 U/L (<33); AST/SGOT 18 U/L (10.0-35.0)
[2019-05-20 02:51] LABS: PLATELET ESTIMATE NORMAL (NORMAL); TOXIC GRANULATION 2+
[2019-05-20 02:56] LABS: ACETONE,SERUM NEGATIVE (NEGATIVE)
[2019-05-20] MEDS ORDERED: SOD CHLOR 0.9% WITH KCL 40MEQ 40 MEQ/1,000 ML IV.SOLN IV ONE (02:56)
[2019-05-20] MEDS ORDERED: HYDROMORPHONE HCL 2 MG/ML VIAL IVP ONE (03:35)
[2019-05-20] MEDS ORDERED: PROPOFOL 10 MG/ML VIAL IV ONE ×2 (05:21)
[2019-05-20] MEDS ORDERED: LIDOCAINE 2% MDV (20MG/ML) 20ML VIAL IV ONE ×2 (05:21)
[2019-05-20] MEDS ORDERED: PROMETHAZINE HCL 12.5 MG in 0.9 % SODIUM CHLORIDE 100ML 100 ML IVPB PRN (05:31)
[2019-05-20] MEDS ORDERED: VENLAFAXINE ER 75 MG CAPSULE PO SCH (05:31)
[2019-05-20] MEDS ORDERED: POTASSIUM CHLORIDE/D5-0.9%NACL 20 MEQ/1,000 ML BAG IV SCH (05:31)
[2019-05-20 05:55] LABS: URINE APPEARANCE CLEAR; URINE BILIRUBIN NEGATIVE (NEGATIVE); URINE BLOOD NEGATIVE (NEGATIVE); URINE COLOR YELLOW; URINE KETONE 40 mg/dL (NEGATIVE); URINE LEUKOCYTE ESTERASE NEGATIVE (NEGATIVE); URINE NITRITE NEGATIVE (NEGATIVE); URINE PROTEIN NEGATIVE (NEGATIVE); URINE UROBILINOGEN 0.2 E.U./dL (0.20 - 1.00)
[2019-05-20] MEDS ORDERED: FLU VAC QS 2019-20 (INPT, 6MO+) 60MCG/0.5ML IM ONE (06:24)
[2019-05-20] MEDS ORDERED: HUMULIN R 100 UNIT/ML VIAL SQ SCH (07:30)
[2019-05-20] MEDS: HYDROMORPHONE HCL 2 MG/ML VIAL IVP PRN ×3 (09:04→22:56)
[2019-05-20 09:38] LABS: BASO % 0.1 % (0-6); HEMATOCRIT 36.9 % (35.0-47.0); HEMOGLOBIN 12.4 gm/dl (11.6-16.0); LYMPH % 7.2 % (16-45); MEAN CELL VOLUME 88.9 fl (81-97); MEAN CORPUSCULAR HEMOGLOBIN 29.9 pg (27-33); MEAN CORPUSCULAR HGB CONC 33.6 g/dl (32-36); MEAN PLATELET VOLUME 9.4 fl (7.4-10.4); MONO % 1.8 % (0-9); PLATELET COUNT 330 K/uL (130-400); RED BLOOD COUNT 4.15 M/uL (3.80-5.40); RED CELL DISTRIBUTION WIDTH 12.4 % (11.5-14.5)
[2019-05-20 09:58] LABS: BLOOD UREA NITROGEN 12 mg/dL (6-20); CREATININE 0.5 mg/dL (0.5-0.9); EST GLOMERULAR FILTRATION RATE > 60 mL/min; GLUCOSE,RANDOM 166 mg/dL (74-109)
--- NOTE | 2019-05-20 11:19 | History & Physical ---
History of Present Illness - Date of Service Date of Service for History & Physical: 05/20/19 - History of Present Illness Admitting Diagnosis: colitis, hyperglycemia, dehydration, gastroparesis History of Present Illness: 49 yo female presents to [facility] ER for c/o N/V/D with complications with DM. Pt reports sudden onset N/V/D with no sick contacts, gallbladder removal 2016. Recent admission for same [facility]FA[facility] 2 months ago. Pt reports BG was 150 before the vomiting and 300 after. Abd pain started and pt went to ER. WBC 19.7, Hgb 14, Hct 41.5, Plt 355, Bands 22 VBG 7.46 Na 137, K 3.3, Cl 96, CO2 17, Anion Gap 24, BUN 18, Cr 0.5, GFR>60, glucose 345, LFTs wnl, lipase 24 Hcg, Neg UA neg infection but glucose 500, ketone [address] abd/plevis shows guillen colitis Pt given 1L NS and 1l D5NS with 20K @125/hr, dilaudid 0.5mg IVP, zofran 4mg IVP, phenergan 12.5mg IVPB x2 Admit colitis,n/v, hyperglycemia, gastroporesis, and hypokalemia 05/20/19 Pt resting in bed, no acute distress but report fatigue. Pt has not had diarrhea since arrival to ER and nausea/pain controlled with IV meds. Abd is hypoactive and TTP epigastric. Lungs CTA, heart RRR, no edema noted. Pt is moving all extremities with no difficulty. POC monitor and treat electrolytes, nausea and pain medications. NPO until nausea improved and then advance to CLD. GI consult ordered and reglan added TID for nausea. PCP [facility] Travel Screening - Travel/Exposure Within Last 30 Days Have you traveled within the last 30 days?: No - Travel/Exposure Within Last Year Have you traveled outside the [place] in the last year?: No - Additonal Travel Details Have you been exposed to anyone with a communicable illness?: No - Travel Symptoms Symptom Screening: Diarrhea, Vomiting, Stomach Pain, Lack of Appetite Review of Systems Constitutional: Denies: Chills, Fever, Malaise, Weakness Eyes: Denies: Eye discharge ENT: Denies: Congestion, Throat pain Respiratory: Denies: Cough, Dyspnea, Hemoptysis, Wheezes Cardiovascular: Denies: Chest pain, Dyspnea on exertion, Palpitations, Syncope Endocrine: Denies: Fatigue, Polydipsia, Polyuria Gastrointestinal: Reports: Abdominal pain, Diarrhea, Nausea, Vomiting Genitourinary: Denies: Dysuria, Frequency Musculoskeletal: Denies: Arthralgia, Back pain, Neck pain Neurological: Denies: Headache, Weakness Psychiatric: Denies: Anxiety Hematological/Lymphatic: Denies: Easy bleeding, Easy bruising Past Medical History - SOCIAL HISTORY Smoking Status: Former smoker Alcohol Use: None Drug Use: None - RESPIRATORY Hx Respiratory Disorders: No - CARDIOVASCULAR Hx Cardio Disorders: Yes Hx Hypertension: Yes - NEURO Hx Neuro Disorders: No - GI Hx GI Disorders: Yes Hx Abdominal Pain: Yes (recently hospitalized for colitis (>30 days ago)) Hx Irritable Bowel: Yes Comment:: Gastroparesis - Hx Genitourinary Disorders: Yes Hx UTI: Yes (Hx frequent UTI) - ENDOCRINE Hx Endocrine Disorders: Yes Hx Diabetes: Yes Comment:: CHECKS BLOOD SUGARS 5X/DAY - MUSCULOSKELETAL Hx Musculoskeletal Disorders: No - PSYCH Hx Psych Problems: Yes Hx Anxiety: Yes Hx Depression: Yes - HEMATOLOGY/ONCOLOGY Hx Hematology/Oncology Disorders: No Family Medical History Any Significant Family History?: No H&P Meds/Allergies - Allergies Allergies: Allergies Allergy/AdvReac Type Severity Reaction Status Date / Time morphine AdvReac VOMITING Verified 05/20/19 02:04 - Home Medications Home Medications Medication Instructions Recorded Confirmed Last Taken Cholecalciferol (Vitamin D3) 2,000 unit PO QHS 05/20/19 05/20/19 Unknown [Vitamin D3] Insulin Aspart [Novolog Flexpen] 10 unit SQ TIDAC 05/20/19 05/20/19 Unknown Insulin Glargine,Hum.rec.anlog 36 unit SQ BID 05/20/19 05/20/19 Unknown [Basaglar Kwikpen U-100] Lisinopril 20 mg PO QHS 05/20/19 05/20/19 Unknown Multivit-Min/Iron/Folic/Vit K1 1 each PO QHS 05/20/19 05/20/19 Unknown [Centrum Chewables Adults Tab] Venlafaxine HCl [Venlafaxine HCl 150 mg PO QHS 05/20/19 05/20/19 Unknown ER] - Active Medications Active Medications: Current Medications Hydromorphone HCl (Dilaudid) 0.5 mg IVP Q4H PRN PRN Reason: ABDOMINAL PAIN Last Admin: 05/20/19 09:10 Dose: 0.5 mg Documented by: Potassium Chloride/Dextrose/Sod Cl () 20 meq in 1,000 mls @ 125 mls/hr IV Q8H [facility] Insulin Aspart (Novolog Flexpen) 1 unit SQ TIDINS [facility]; Protocol Insulin Detemir (Levemir Flextouch) 18 unit SQ BID [facility] Lisinopril (Zestril) 20 mg PO QHS [facility] Metoclopramide HCl (Reglan) 10 mg PO WMEALS [facility] Metoprolol Tartrate (Lopressor) 25 mg PO BID [facility] Trazodone HCl (Desyrel) 50 mg PO QHS [facility] Venlafaxine HCl (Effexor Xr) 150 mg PO QHS [facility] Physical Exam - Vital Signs Vital Signs: Vital Signs - Last 24 Hrs Temp Pulse Pulse Pulse Resp BP BP 05/20/19 09:15 98.5 F 105 H 18 05/20/19 05:30 100.0 F H 102 H 16 05/20/19 03:53 110 H 18 114/49 05/20/19 02:45 106 H 20 140/68 05/20/19 01:55 97.5 F L 123 H 24 192/93 BP Pulse Ox 05/20/19 09:15 145/90 100 05/20/19 05:30 128/70 98 05/20/19 03:53 95 05/20/19 02:45 98 05/20/19 01:55 100 - General General Appearance: Alert, Oriented x3, Cooperative, No acute distress Limitations: No limitations - Head Head exam: Atraumatic, Normal inspection - Eye Eye exam: Normal appearance, PERRL. negative: Conjunctival injection, Scleral icterus - ENT ENT exam: Normal exam, Mucous membranes moist Ear exam: Normal external inspection Nasal Exam: Normal inspection Mouth exam: Normal external inspection - Neck Neck exam: Normal inspection - Respiratory Respiratory exam: Normal lung sounds bilaterally. negative: Respiratory distress, Rhonchi, Stridor, Wheezes - Cardiovascular Cardiovascular Exam: Regular rate, Normal rhythm, Normal heart sounds Peripheral Pulses: 2+: Radial (R), Radial (L), Dorsalis Pedis (R), Dorsalis Pe dis (L) - GI/Abdominal GI/Abdominal exam: Soft, Tenderness (mild diffuse tenderness but actively vomiting on initial examination). negative: Distended, Guarding, Rebound, Rigid - Rectal Rectal exam: Deferred - exam: Deferred - Extremities Extremities exam: Normal inspection - Back Back exam: Denies: CVA tenderness (R), CVA tenderness (L) - Neurological Neurological exam: Alert, Oriented X3 - Psychiatric Psychiatric exam: Normal affect, Normal mood - Skin Skin exam: Dry, Intact, Normal color, Warm Results - Labs Result Diagrams: 05/20/19 09:20 05/20/19 09:20 Labs Last 24 Hours: Laboratory Results - last 24 hr 05/20/19 05/20/19 05/20/19 02:10 02:25 02:25 WBC 19.7 H RBC 4.71 Hgb 14.0 Hct 41.5 MCV 88.1 MCH 29.7 MCHC 33.7 RDW 12.5 Plt Count 355 MPV 9.4 Neutrophils % 70.0 Band Neutrophils % 22.0 H Lymphocytes % 5.2 L Monocytes % 3.4 Eosinophils % 0.3 Basophils % 0.1 Absolute Neutrophils 17.92 Lymphocytes 5.0 L Monocytes 3.0 Toxic Granulation 2+ Platelet Estimate Normal RBC Morphology Normal VBG pH 7.46 H Cancelled Sodium 137 Potassium 3.3 L Chloride 96 L Carbon Dioxide 17.0 L Anion Gap 24.0 H BUN 18 Creatinine 0.5 Estimated GFR > 60 POC Glucose Random Glucose 345 H Calcium 9.4 Total Bilirubin 0.60 AST 18 ALT 19 Alkaline Phosphatase 49 Total Protein 7.6 Albumin 4.5 Globulin 3.1 Albumin/Globulin Ratio 1.5 Lipase Serum HCG, Qual Urine Color Urine Appearance Urine pH Ur Specific [place] Urine Protein Urine Glucose (UA) Urine Ketones Urine Blood Urine Nitrite Urine Bilirubin Urine Urobilinogen Ur Leukocyte Esterase Acetone, Qual Negative 05/20/19 05/20/19 05/20/19 02:25 03:50 05:05 WBC RBC Hgb Hct MCV MCH MCHC RDW Plt Count MPV Neutrophils % Band Neutrophils % Lymphocytes % Monocytes % Eosinophils % Basophils % Absolute Neutrophils Lymphocytes Monocytes Toxic Granulation Platelet Estimate RBC Morphology VBG pH Sodium Potassium Chloride Carbon Dioxide Anion Gap BUN Creatinine Estimated GFR POC Glucose 283 H Random Glucose Calcium Total Bilirubin AST ALT Alkaline Phosphatase Total Protein Albumin Globulin Albumin/Globulin Ratio Lipase 24 Serum HCG, Qual Negative Urine Color Urine Appearance Urine pH Ur Specific [place] Urine Protein Urine Glucose (UA) Urine Ketones Urine Blood Urine Nitrite Urine Bilirubin Urine Urobilinogen Ur Leukocyte Esterase Acetone, Qual 05/20/19 05/20/19 05/20/19 05:30 08:09 09:20 WBC 13.0 H RBC 4.15 Hgb 12.4 Hct 36.9 MCV 88.9 MCH 29.9 MCHC 33.6 RDW 12.4 Plt Count 330 MPV 9.4 Neutrophils % Band Neutrophils % Lymphocytes % 7.2 L Monocytes % 1.8 Eosinophils % 0.0 Basophils % 0.1 Absolute Neutrophils 11.80 Lymphocytes Monocytes Toxic Granulation Platelet Estimate RBC Morphology VBG pH Sodium Potassium Chloride Carbon Dioxide Anion Gap BUN Creatinine Estimated GFR POC Glucose 140 H Random Glucose Calcium Total Bilirubin AST ALT Alkaline Phosphatase Total Protein Albumin Globulin Albumin/Globulin Ratio Lipase Serum HCG, Qual Urine Color Yellow Urine Appearance Clear Urine pH 6.5 Ur Specific [place] <= 1.005 Urine Protein Negative Urine Glucose (UA) 500 mg/dl H Urine Ketones 40 mg/dl H Urine Blood Negative Urine Nitrite Negative Urine Bilirubin Negative Urine Urobilinogen 0.2 Ur Leukocyte Esterase Negative Acetone, Qual 05/20/19 09:20 WBC RBC Hgb Hct MCV MCH MCHC RDW Plt Count MPV Neutrophils % Band Neutrophils % Lymphocytes % Monocytes % Eosinophils % Basophils % Absolute Neutrophils Lymphocytes Monocytes Toxic Granulation Platelet Estimate RBC Morphology VBG pH Sodium 141 Potassium 4.1 Chloride 103 Carbon Dioxide 23.0 Anion Gap 15.0 BUN 12 Creatinine 0.5 Estimated GFR > 60 POC Glucose Random Glucose 166 H Calcium 8.8 Total Bilirubin AST ALT Alkaline Phosphatase Total Protein Albumin Globulin Albumin/Globulin Ratio Lipase Serum HCG, Qual Urine Color Urine Appearance Urine pH Ur Specific [place] Urine Protein Urine Glucose (UA) Urine Ketones Urine Blood Urine Nitrite Urine Bilirubin Urine Urobilinogen Ur Leukocyte Esterase Acetone, Qual - Imaging and Cardiology CT scan - abdomen Status: Pending VTE H&P Assessment - Risk for VTE Risk for VTE: Yes Risk Level: Moderate Risk Assessment Date: 05/20/19 Risk Assessment Time: 11:50 VTE Orders Placed or Will Be Placed: Yes Plan - Detailed Diagnosis and Plan (1) Gastroparesis Current Visit: Yes Status: Acute Base Code: K31.84 - GASTROPARESIS Comment: 05/20/19 -starting reglan, continue NPO until nausea better controlled -GI consult started -continue glucose control (2) Colitis Current Visit: Yes Status: Acute Base Code: K52.9 - NONINFECTIVE GASTROENTERITIS AND COLITIS, UNSPECIFIED Comment: 05/20/19 -CT reveals pancolitis, pt was recently on cipro and flaygl for same 2 months ago -repeating abx until GI consult suggests otherwise (3) Dehydration Current Visit: Yes Status: Acute Base Code: E86.0 - DEHYDRATION Comment: 05/20/19 -continue IVF D5/NS with 20 mEq K at 125/hr -repeat lytes QD (4) Diarrhea Current Visit: Yes Status: Acute Qualifiers: Diarrhea type: unspecified type Qualified Code(s): R19.7 - Diarrhea, unspecified Base Code: R19.7 - DIARRHEA, UNSPECIFIED Comment: 05/20/19 -stool cultures pending, no diarrhea this admission -contact isolation continues until otherwise (5) Hyperglycemia Current Visit: Yes Status: Acute Base Code: R73.9 - HYPERGLYCEMIA, UNSPECIFIED Comment: 05/20/19 -pt is NPO at this time with D5 infusing, long acting decreased by 50% and meal time S/S mod coverage when pt able to tolerate CLD -adjust as needed (6) Vomiting Current Visit: Yes Status: Acute Qualifiers: Vomiting type: unspecified Vomiting Intractability: unspecified Nausea presence: unspecified Qualified Code(s): R11.10 - Vomiting, unspecified Base Code: R11.10 - VOMITING, UNSPECIFIED Comment: 05/20/19 -Pt to continue antinause meds IVP, adding reglan TID -NPO until improvement and then CLD (7) Diabetes Current Visit: No Status: Acute Qualifiers: Diabetes mellitus type: type 1 Diabetes mellitus complication status: without complication Qualified Code(s): E10.9 - Type 1 diabetes mellitus without complications Base Code: E11.9 - TYPE 2 DIABETES MELLITUS WITHOUT COMPLICATIONS Comment: 05/20/19 -continue 50% long acting with mod S/S TID -advance as needed (8) Full code status Current Visit: Yes Status: Acute Base Code: Z78.9 - OTHER SPECIFIED HEALTH STATUS Comment: 05/20/19 -Full code
[2019-05-20] MEDS: POTASSIUM CHLORIDE/D5-0.9%NACL 20 MEQ/1,000 ML BAG IV SCH ×3 (11:34→20:49)
[2019-05-20] MEDS: LEVEMIR FLEXTOUCH 100 UNIT/ML INSULIN PEN SQ SCH ×2 (11:36→22:22)
[2019-05-20] MEDS: CIPROFLOXACIN LACTATE/D5W 400 MG/200 ML BAG IVPB SCH ×2 (12:15→22:07)
[2019-05-20] MEDS: METOCLOPRAMIDE 10 MG TABLET PO SCH ×3 (13:01→17:47)
[2019-05-20] MEDS: METOPROLOL TART 25 MG TABLET PO SCH ×2 (15:14→22:10)
[2019-05-20] MEDS: METRONIDAZOLE IVPB 500 MG/100 ML BAG IVPB SCH ×2 (15:15→20:49)
[2019-05-20] MEDS: ENOXAPARIN 40 MG/0.4 ML SYR SQ SCH (15:15)
[2019-05-20] MEDS: VENLAFAXINE ER 75 MG CAPSULE PO SCH ×2 (15:15→22:11)
[2019-05-20] MEDS ORDERED: BISACODYL 5 MG TABLET PO ONE (16:23)
[2019-05-20] MEDS ORDERED: MAGNESIUM CITRATE 296 ML BTL PO PRN (16:24)
[2019-05-20] MEDS: NOVOLOG FLEXPEN (INSULIN ASPART) 100 UNITS/ML SQ SCH ×2 (16:47→17:52)
[2019-05-20] MEDS: POLYETHYLENE GLY 17 GM PACKET PO SCH (19:18)
[2019-05-20 20:21] LABS: CRYPTOSPORIDIUM PARVUM ANTIGEN NOT DETECTED (NOT DETECT)
[2019-05-20 21:05] LABS: ROTOVIRUS NOT DETECTED (NOT DETECT)
[2019-05-20 21:33] LABS: MOLECULAR C DIFF TOXIN SCREEN NOT DETECTED (NOT DETECT)
[2019-05-20] MEDS: TRAZODONE 50 MG TABLET PO SCH (22:10)
[2019-05-20] MEDS: LISINOPRIL 20 MG TABLET PO SCH (22:10)
[2019-05-20] MEDS ORDERED: ONDANSETRON HCL IV 4 MG/2 ML VIAL IVP PRN (22:42)
[2019-05-21] MEDS: METRONIDAZOLE IVPB 500 MG/100 ML BAG IVPB SCH ×3 (05:10→23:26)
--- NOTE | 2019-05-21 07:18 | CT SCAN REPORT ---
EXAM: CT OF THE ABDOMEN AND PELVIS WITH INTRAVENOUS CONTRAST HISTORY: ABDOMINAL PAIN AND VOMITING. MID ABDOMINAL PAIN AND FLANK PAIN. TECHNIQUE: Helical scanning was performed from above the diaphragm to below the ischial tuberosities following the administration of bolus intravenous contrast (type and volume recorded in the medial record). Sagittal and coronal reconstructions were performed. Delayed images were obtained through the kidneys. Comparison: 03/30/17. FINDINGS: CT ABDOMEN WITH INTRAVENOUS CONTRAST: The liver, spleen, pancreas, adrenals, and kidneys have a normal CT appearance. The gallbladder has apparently been previously removed. There is no biliary dilatation. There is no free air or free fluid in the upper abdomen. No enlarged lymph nodes are seen. The bowel loops are nondilated. There is no bowel wall thickening. The visible portions of the lung bases are clear. There are no discrete osteolytic or osteoblastic lesions. CT PELVIS WITH INTRAVENOUS CONTRAST: The bladder and uterus are unremarkable. There is no free fluid or lymph node enlargement in the pelvis. The bowel loops are nondilated. There is no bowel wall thickening. The appendix has a normal CT appearance. There are no discrete osseous lesions. IMPRESSION: NO ACUTE PROCESS. JOB NUMBER: [id number] [facility]
--- NOTE | 2019-05-21 08:10 | Operative Note ---
OPERATION: ESOPHAGOGASTRODUODENOSCOPY with biopsy. PREOPERATIVE DIAGNOSIS: Nausea and vomiting. POSTOPERATIVE DIAGNOSES: 1. Moderate amount of retained bilious gastric fluid suspicious for gastroparesis. 2. Diffuse gastritis. PROCEDURE: After informed consent was obtained from the patient, she was placed in the left lateral decubitus position in the endoscopy suite, sedated and monitored by the department of anesthesia. Once sedated, a well-lubricated [id number] gastroscope was placed in the posterior oropharynx under direct visualization and passed to the proximal esophagus. The endoscope was advanced through the proximal, mid, and distal esophagus. The GE junction and esophagus were unremarkable. The gastric body was entered demonstrating a moderate amount of green fluid. Approximately 300 mL was aspirated via the endoscope. There were diffuse petechiae and adherent blood throughout the gastric lumen including the fundus, body, and antrum. The pylorus was cannulated easily revealing a normal- appearing duodenal bulb and sweep. No irregularities were noted. J-turn views of the proximal stomach were unremarkable other than the gastritis that was noted. The endoscope was straightened. Random gastric biopsies obtained. The endoscope removed from the patient with no new findings noted. RECOMMENDATIONS: I will have the patient undergo a gastric emptying study and also she should undergo an outpatient colonoscopy. As always, thank you for allowing me to participate in the healthcare of your patients. SARITHA
--- NOTE | 2019-05-21 08:10 | Medical Records Consult ---
DATE OF CONSULTATION: REASON FOR CONSULTATION: Nausea, vomiting, diarrhea. HISTORY OF PRESENT ILLNESS: The patient is a pleasant 49-year-old woman who was admitted with recurrent bouts of nausea, vomiting, and diarrhea. She underwent a CT of the abdomen which demonstrated diffuse colonic wall thickening. She had a previous episode and was hospitalized at [facility] in [place], [place], approximately 1 month ago. At that time she stated she received intravenous antibiotics, intravenous fluids, and electrolytes and improved. She typically has one formed bowel movement per day and recovered from her hospitalization at [facility]. She was having one bowel movement every day to every other day and subsequently developed abrupt onset of abdominal discomfort and diarrhea. She was having nausea and vomiting and prompted a visit to the [facility]. She was admitted to the hospital. Stool studies and laboratory studies were obtained. She is being seen by GI at the request of the primary service due to the recurrence of her nausea, vomiting, and diarrhea. She states that she has never been officially diagnosed with gastroparesis but does see an orthodontic laboratory technician who believes she might have that. She states that the testing was expensive, so this gastroparetic diagnostic testing was not performed. She denies any melena, hematochezia, or hematemesis. She has a long- standing history of diabetes as well as hypertension. PAST MEDICAL HISTORY: Diabetes and hypertension. PAST SURGICAL HISTORY: Breast reduction. She has had cholecystectomy and carpal tunnel surgery. SOCIAL HISTORY: She used to be a smoker, does not use alcohol or illicit drugs. HOME MEDICATIONS: 1. Vitamin D. 2. Insulin. 3. Lisinopril. 4. Multivitamin. 5. Effexor. ALLERGIES: No known drug allergies other than MORPHINE which causes nausea and vomiting. FAMILY HISTORY: Noncontributory. REVIEW OF SYSTEMS: A 12-point review of systems was reviewed from the H&P dated 05/20/2019 by Kathleen Ross. Additions were those that were listed in the History of Present Illness, otherwise noted in the review of systems. PHYSICAL EXAMINATION: VITAL SIGNS: Temperature 98.5, blood pressure 145/90, respiration 18, room air saturation 100%, heart rate 105. GENERAL: She is alert, awake, oriented x3, nontoxic in appearance, appears to be in no acute distress. HEENT: Head is atraumatic, normocephalic. No temporal muscle wasting was noted. Sclerae are anicteric. Extraocular movements are intact. No conjunctival injection was appreciable. NECK: Supple. Trachea midline. Thyroid nonpalpable. HEART: Regular rate and rhythm although minimally tachycardic. LUNGS: Clear to auscultation without rhonchi, rales, or wheezing. Normal to percussion. ABDOMEN: Slightly obese. Otherwise soft. Positive bowel sounds. No guarding, rebound, or rigidity. There was mild epigastric tenderness to palpation. No hepatosplenomegaly was noted. EXTREMITIES: No clubbing, cyanosis, or edema. LABORATORY DATA: White count 13.0, hemoglobin 12.4, hematocrit 36.4, platelets 330. Venous pH 7.46. Sodium 141, potassium 4.1, chloride 103, CO2 23, BUN 12, creatinine 0.5, glucose 166. AST, ALT, alkaline phosphatase, and total bilirubin were unremarkable. Urine demonstrates a 500 mg/dL urinary glucose. Positive for ketones. Stool studies are pending. RADIOGRAPHIC DATA: CT of the abdomen demonstrates diffuse colonic wall thickening. No pneumatosis, no free air fluid. Gallbladder was surgically absent. There is minimal intrahepatic and extrahepatic biliary ductal dilation likely related to post-cholecystectomy state. IMPRESSION: 1. Nausea, vomiting, diarrhea. Unclear etiology. Perhaps the patient has underlying gastroparesis and may have had some infectious issues. Other possibility is that she may have some functional gut disorder. 2. Diabetes mellitus by history. RECOMMENDATIONS: I would suggest the patient undergo an upper endoscopy today. At some point, she should undergo a colonoscopy, which can be done as an outpatient pending the results of her stool studies. Further recommendations will be forthcoming once upper endoscopy results are available. If this is unremarkable, then at some point she should also have a gastric emptying study. As always, thank you for allowing me to participate in the healthcare of your patient. SARITHA
[2019-05-21] MEDS: METOPROLOL TART 25 MG TABLET PO SCH ×2 (10:15→21:47)
[2019-05-21] MEDS: ENOXAPARIN 40 MG/0.4 ML SYR SQ SCH (10:15)
[2019-05-21] MEDS: LEVEMIR FLEXTOUCH 100 UNIT/ML INSULIN PEN SQ SCH ×2 (10:15→22:02)
[2019-05-21] MEDS: NOVOLOG FLEXPEN (INSULIN ASPART) 100 UNITS/ML SQ SCH ×3 (10:16→18:20)
[2019-05-21] MEDS: POLYETHYLENE GLY 17 GM PACKET PO SCH (10:21)
[2019-05-21] MEDS: METOCLOPRAMIDE 10 MG TABLET PO SCH ×3 (10:34→18:22)
[2019-05-21 11:12] LABS: ABSOLUTE NEUTROPHIL COUNT 4.96; BASO % 0.1 % (0-6); EOS % 1.5 % (0-6); GRAN % 63.3 % (47-80); HEMATOCRIT 34.1 % (35.0-47.0); HEMOGLOBIN 11.2 gm/dl (11.6-16.0); LYMPH % 31.2 % (16-45); MEAN CORPUSCULAR HGB CONC 32.8 g/dl (32-36); MEAN PLATELET VOLUME 9.4 fl (7.4-10.4); MONO % 3.9 % (0-9); PLATELET COUNT 324 K/uL (130-400); RED BLOOD COUNT 3.79 M/uL (3.80-5.40); RED CELL DISTRIBUTION WIDTH 12.3 % (11.5-14.5); WHITE BLOOD COUNT W/O DIFF 7.9 K/uL (4.2-12.2)
[2019-05-21 11:13] LABS: MEAN CORPUSCULAR HEMOGLOBIN 29.5 pg (27-33)
[2019-05-21 11:28] LABS: ALB/GLOB RATIO 1.5 (1.1-1.8); ALBUMIN 4.1 g/dL (4.0-5.0); ALKALINE PHOSPHATASE 38 U/L (35-104); ALT/SGPT 14 U/L (<33); AST/SGOT 15 U/L (10.0-35.0); BLOOD UREA NITROGEN 4 mg/dL (6-20); CREATININE 0.4 mg/dL (0.5-0.9); EST GLOMERULAR FILTRATION RATE > 60 mL/min; GLUCOSE,RANDOM 125 mg/dL (74-109); TOTAL PROTEIN 6.9 g/dL (6.6-8.7)
[2019-05-21] MEDS: CIPROFLOXACIN LACTATE/D5W 400 MG/200 ML BAG IVPB SCH (11:28)
--- NOTE | 2019-05-21 11:39 | Physician Progress Note ---
Subjective - Date Date of Physician Progress Note: 05/22/19 - Subjective Subjective Comment: Pt has EGD yesterday and Csope this AM. After return, pt reports controlled symptoms and ready to attempt to advance diet. Objective - Vital Signs Vital Signs: Vital Signs - Last 24 Hrs Temp Pulse Pulse Resp BP Pulse Ox 05/21/19 08:00 98.2 F 100 H 94 H 12 135/85 98 05/21/19 04:00 98.1 F 91 H 18 135/85 97 05/21/19 00:00 97.9 F 89 18 05/20/19 20:00 99 H 18 165/92 98 05/20/19 16:10 99.0 F 101 H 16 159/97 100 - General General Appearance: Alert, Oriented x3, Cooperative, No acute distress Limitations: No limitations - Head Head exam: Atraumatic, Normal inspection - Eye Eye exam: Normal appearance, PERRL. negative: Conjunctival injection, Scleral icterus - ENT ENT exam: Normal exam, Mucous membranes moist Ear exam: Normal external inspection Nasal Exam: Normal inspection Mouth exam: Normal external inspection - Neck Neck exam: Normal inspection - Respiratory Respiratory exam: Normal lung sounds bilaterally. negative: Respiratory distress, Rhonchi, Stridor, Wheezes - Cardiovascular Cardiovascular Exam: Regular rate, Normal rhythm, Normal heart sounds Peripheral Pulses: 2+: Radial (R), Radial (L), Dorsalis Pedis (R), Dorsalis Pe dis (L) - GI/Abdominal GI/Abdominal exam: Soft, Normal bowel sounds, Tenderness (epigastric and LQ). negative: Distended, Guarding, Rebound, Rigid - Rectal Rectal exam: Deferred - exam: Deferred - Extremities Extremities exam: Normal inspection - Back Back exam: Denies: CVA tenderness (R), CVA tenderness (L) - Neurological Neurological exam: Alert, Oriented X3 - Psychiatric Psychiatric exam: Normal affect, Normal mood - Skin Skin exam: Dry, Intact, Normal color, Warm Assessment and Plan - Assessment and Plan (1) Gastroparesis Current Visit: Yes Status: Acute Base Code: K31.84 - GASTROPARESIS Comment: 05/20/19 -starting reglan, continue NPO until nausea better controlled -GI consult started -continue glucose control 05/21/19 -pt glucose controlled with 50% insulin and mod S/S coverage -continue D5 IVF with advancing CLD and soft diet -continue to advance as tolerated (2) Colitis Current Visit: Yes Status: Acute Base Code: K52.9 - NONINFECTIVE GASTROENTERITIS AND COLITIS, UNSPECIFIED Comment: 05/20/19 -CT reveals pancolitis, pt was recently on cipro and flaygl for same 2 months ago -repeating abx until GI consult suggests otherwise 05/21/19 -pain has continued to improve with the addition of ABX and reglan (3) Dehydration Current Visit: Yes Status: Acute Base Code: E86.0 - DEHYDRATION Comment: 05/20/19 -continue IVF D5/NS with 20 mEq K at 125/hr -repeat lytes QD 05/21/19 -advance to CLD, continue IVF until reg diet (4) Diarrhea Current Visit: Yes Status: Acute Qualifiers: Diarrhea type: unspecified type Qualified Code(s): R19.7 - Diarrhea, unspecified Base Code: R19.7 - DIARRHEA, UNSPECIFIED Comment: 05/20/19 -stool cultures pending, no diarrhea this admission -contact isolation continues until otherwise 05/21/19 -no diarrhea, not passing gas at this time but advancing to CLD (5) Hyperglycemia Current Visit: Yes Status: Acute Base Code: R73.9 - HYPERGLYCEMIA, UNSPECIFIED Comment: 05/20/19 -pt is NPO at this time with D5 infusing, long acting decreased by 50% and meal time S/S mod coverage when pt able to tolerate CLD -adjust as needed 05/21/19 - glucose controlled on 50% dosing, no uncontrolled BG noted since arrival and nausea control (6) Vomiting Current Visit: Yes Status: Acute Qualifiers: Vomiting type: unspecified Vomiting Intractability: unspecified Nausea presence: unspecified Qualified Code(s): R11.10 - Vomiting, unspecified Base Code: R11.10 - VOMITING, UNSPECIFIED Comment: 05/20/19 -Pt to continue antinause meds IVP, adding reglan TID -NPO until improvement and then CLD 05/21/19 -no vomiting since arrival, nausea controlled with current meds and addition of reglan (7) Diabetes Current Visit: No Status: Acute Qualifiers: Diabetes mellitus type: type 1 Diabetes mellitus complication status: without complication Qualified Code(s): E10.9 - Type 1 diabetes mellitus without complications Base Code: E11.9 - TYPE 2 DIABETES MELLITUS WITHOUT COMPLICATIONS Comment: 05/20/19 -continue 50% long acting with mod S/S TID -advance as needed 05/21/19 -controlled blood sugar (8) Full code status Current Visit: Yes Status: Acute Base Code: Z78.9 - OTHER SPECIFIED HEALTH STATUS Comment: 05/21/19 -Full code Results - Labs Result Diagrams: 05/21/19 10:57 05/21/19 10:57 Labs Last 24 Hours: Laboratory Results - last 24 hr 05/20/19 05/20/19 05/20/19 07:30 09:20 11:30 WBC RBC Hgb Hct MCV MCH MCHC RDW Plt Count MPV Gran % Neutrophils % 90.0 H Band Neutrophils % 0.0 Lymphocytes % Monocytes % Eosinophils % Basophils % Absolute Neutrophils Lymphocytes 9.0 L Monocytes 0.0 Eosinophil Count 1.0 Sodium Potassium Chloride Carbon Dioxide Anion Gap BUN Creatinine Estimated GFR POC Glucose Cancelled Cancelled Random Glucose Calcium Magnesium Total Bilirubin AST ALT Alkaline Phosphatase Total Protein Albumin Globulin Albumin/Globulin Ratio Stool Occult Blood Stool for White Cells Rotavirus Antigen Stl C.difficile Tox A&B Cryptosporid parvum Ag Giardia lamblia Ag 05/20/19 05/20/19 05/20/19 11:30 12:39 17:00 WBC RBC Hgb Hct MCV MCH MCHC RDW Plt Count MPV Gran % Neutrophils % Band Neutrophils % Lymphocytes % Monocytes % Eosinophils % Basophils % Absolute Neutrophils Lymphocytes Monocytes Eosinophil Count Sodium Potassium Chloride Carbon Dioxide Anion Gap BUN Creatinine Estimated GFR POC Glucose 166 H 166 H Cancelled Random Glucose Calcium Magnesium Total Bilirubin AST ALT Alkaline Phosphatase Total Protein Albumin Globulin Albumin/Globulin Ratio Stool Occult Blood Stool for White Cells Rotavirus Antigen Stl C.difficile Tox A&B Cryptosporid parvum Ag Giardia lamblia Ag 05/20/19 05/20/19 05/20/19 17:50 19:37 19:37 WBC RBC Hgb Hct MCV MCH MCHC RDW Plt Count MPV Gran % Neutrophils % Band Neutrophils % Lymphocytes % Monocytes % Eosinophils % Basophils % Absolute Neutrophils Lymphocytes Monocytes Eosinophil Count Sodium Potassium Chloride Carbon Dioxide Anion Gap BUN Creatinine Estimated GFR POC Glucose 153 H Random Glucose Calcium Magnesium Total Bilirubin AST ALT Alkaline Phosphatase Total Protein Albumin Globulin Albumin/Globulin Ratio Stool Occult Blood Negative Stool for White Cells Few wbc's observed H Rotavirus Antigen Stl C.difficile Tox A&B Cryptosporid parvum Ag Giardia lamblia Ag 05/20/19 05/20/19 05/20/19 19:37 22:00 22:20 WBC RBC Hgb Hct MCV MCH MCHC RDW Plt Count MPV Gran % Neutrophils % Band Neutrophils % Lymphocytes % Monocytes % Eosinophils % Basophils % Absolute Neutrophils Lymphocytes Monocytes Eosinophil Count Sodium Potassium Chloride Carbon Dioxide Anion Gap BUN Creatinine Estimated GFR POC Glucose Cancelled 125 H Random Glucose Calcium Magnesium Total Bilirubin AST ALT Alkaline Phosphatase Total Protein Albumin Globulin Albumin/Globulin Ratio Stool Occult Blood Stool for White Cells Rotavirus Antigen Not detected Stl C.difficile Tox A&B Not detected Cryptosporid parvum Ag Not detected Giardia lamblia Ag Not detected 05/21/19 05/21/19 05/21/19 08:30 09:06 09:10 WBC RBC Hgb Hct MCV MCH MCHC RDW Plt Count MPV Gran % Neutrophils % Band Neutrophils % Lymphocytes % Monocytes % Eosinophils % Basophils % Absolute Neutrophils Lymphocytes Monocytes Eosinophil Count Sodium Cancelled Potassium Cancelled Chloride Cancelled Carbon Dioxide Cancelled Anion Gap Cancelled BUN Cancelled Creatinine Cancelled Estimated GFR Cancelled POC Glucose 162 H Cancelled Random Glucose Cancelled Calcium Cancelled Magnesium Total Bilirubin Cancelled AST Cancelled ALT Cancelled Alkaline Phosphatase Cancelled Total Protein Cancelled Albumin Cancelled Globulin Cancelled Albumin/Globulin Ratio Cancelled Stool Occult Blood Stool for White Cells Rotavirus Antigen Stl C.difficile Tox A&B Cryptosporid parvum Ag Giardia lamblia Ag 05/21/19 05/21/19 05/21/19 09:33 10:57 10:57 WBC 7.9 RBC 3.79 L Hgb 11.2 L Hct 34.1 L MCV 90.0 MCH 29.5 MCHC 32.8 RDW 12.3 Plt Count 324 MPV 9.4 Gran % 63.3 Neutrophils % Band Neutrophils % Lymphocytes % 31.2 Monocytes % 3.9 Eosinophils % 1.5 Basophils % 0.1 Absolute Neutrophils 4.96 Lymphocytes Monocytes Eosinophil Count Sodium Potassium Chloride Carbon Dioxide Anion Gap BUN Creatinine Estimated GFR POC Glucose Cancelled Random Glucose Calcium Magnesium 1.6 Total Bilirubin AST ALT Alkaline Phosphatase Total Protein Albumin Globulin Albumin/Globulin Ratio Stool Occult Blood Stool for White Cells Rotavirus Antigen Stl C.difficile Tox A&B Cryptosporid parvum Ag Giardia lamblia Ag 05/21/19 10:57 WBC RBC Hgb Hct MCV MCH MCHC RDW Plt Count MPV Gran % Neutrophils % Band Neutrophils % Lymphocytes % Monocytes % Eosinophils % Basophils % Absolute Neutrophils Lymphocytes Monocytes Eosinophil Count Sodium 143 Potassium 3.4 Chloride 106 Carbon Dioxide 26.0 Anion Gap 11.0 BUN 4 L Creatinine 0.4 L Estimated GFR > 60 POC Glucose Random Glucose 125 H Calcium 8.8 Magnesium Total Bilirubin 0.20 AST 15 ALT 14 Alkaline Phosphatase 38 Total Protein 6.9 Albumin 4.1 Globulin 2.8 Albumin/Globulin Ratio 1.5 Stool Occult Blood Stool for White Cells Rotavirus Antigen Stl C.difficile Tox A&B Cryptosporid parvum Ag Giardia lamblia Ag DVT/PE Assessment - Risk for VTE Risk for VTE: No Risk Level: Moderate Risk Assessment Date: 05/20/19 Risk Assessment Time: 11:50 VTE Orders Placed or Will Be Placed: Yes - Active Medicaitons Current Medications: Current Medications Enoxaparin Sodium (Lovenox) 40 mg SQ DAILY [facility] Last Admin: 05/21/19 10:15 Dose: 40 mg Documented by: Hydromorphone HCl (Dilaudid) 0.5 mg IVP Q4H PRN PRN Reason: ABDOMINAL PAIN Last Admin: 05/20/19 22:56 Dose: 0.5 mg Documented by: Potassium Chloride/Dextrose/Sod Cl () 20 meq in 1,000 mls @ 125 mls/hr IV Q8H [facility] Last Admin: 05/20/19 20:49 Dose: 125 mls/hr Documented by: Ciprofloxacin Lactate (Cipro) 400 mg in 200 mls @ 200 mls/hr IVPB Q12HR [facility] Stop: 05/25/19 12:01 Last Admin: 05/21/19 11:28 Dose: 200 mls/hr Documented by: Metronidazole/Sodium Chloride (Flagyl) 500 mg in 100 mls @ 100 mls/hr IVPB Q8H [facility] Stop: 05/25/19 13:01 Last Infusion: 05/21/19 06:20 Dose: Infused Documented by: Insulin Aspart (Novolog Flexpen) 1 unit SQ TIDINS [facility]; Protocol Last Admin: 05/21/19 10:16 Dose: 8 unit Documented by: Insulin Detemir (Levemir Flextouch) 18 unit SQ BID [facility] Last Admin: 05/21/19 10:15 Dose: 18 unit Documented by: Lisinopril (Zestril) 20 mg PO QHS [facility] Last Admin: 05/20/19 22:10 Dose: 20 mg Documented by: Magnesium Citrate (Citrate Of Magnesia) 150 ml PO ONCE PRN PRN Reason: if stool not clear for prep Metoclopramide HCl (Reglan) 10 mg PO WMEALS [facility] Last Admin: 05/21/19 10:34 Dose: 10 mg Documented by: Metoprolol Tartrate (Lopressor) 25 mg PO BID [facility] Last Admin: 05/21/19 10:15 Dose: 25 mg Documented by: Ondansetron HCl (Zofran) 4 mg IVP Q6H PRN PRN Reason: NAUSEA Last Admin: 05/20/19 22:50 Dose: 4 mg Documented by: Polyethylene Glycol (Miralax) 255 gm PO DAILY [facility] Last Admin: 05/21/19 10:21 Dose: Not Given Documented by: Trazodone HCl (Desyrel) 50 mg PO QHS [facility] Last Admin: 05/20/19 22:10 Dose: 50 mg Documented by: Venlafaxine HCl (Effexor Xr) 150 mg PO QHS [facility] Last Admin: 05/20/19 22:11 Dose: Not Given Documented by: MAYITO Plan - Labs Result Diagrams: 05/21/19 10:57 05/21/19 10:57
[2019-05-21] MEDS: POTASSIUM CHLORIDE/D5-0.9%NACL 20 MEQ/1,000 ML BAG IV SCH ×4 (18:21→23:25)
[2019-05-21] MEDS: TRAZODONE 50 MG TABLET PO SCH (21:49)
[2019-05-21] MEDS: LISINOPRIL 20 MG TABLET PO SCH (21:50)
[2019-05-21] MEDS: VENLAFAXINE ER 75 MG CAPSULE PO SCH (21:50)
[2019-05-22] MEDS: CIPROFLOXACIN LACTATE/D5W 400 MG/200 ML BAG IVPB SCH ×2 (01:25→09:33)
[2019-05-22] MEDS: POTASSIUM CHLORIDE/D5-0.9%NACL 20 MEQ/1,000 ML BAG IV SCH (01:49)
[2019-05-22] MEDS: METRONIDAZOLE IVPB 500 MG/100 ML BAG IVPB SCH (06:53)
[2019-05-22] MEDS: NOVOLOG FLEXPEN (INSULIN ASPART) 100 UNITS/ML SQ SCH (07:59)
[2019-05-22] MEDS: METOCLOPRAMIDE 10 MG TABLET PO SCH (08:11)
[2019-05-22] MEDS: LEVEMIR FLEXTOUCH 100 UNIT/ML INSULIN PEN SQ SCH (09:33)
[2019-05-22] MEDS: METOPROLOL TART 25 MG TABLET PO SCH (09:34)
[2019-05-22] MEDS: ENOXAPARIN 40 MG/0.4 ML SYR SQ SCH (09:34)
[2019-05-22] MEDS: POLYETHYLENE GLY 17 GM PACKET PO SCH (09:36)
--- NOTE | 2019-05-22 11:01 | Discharge Summary ---
Providers Discharge Summary Date: 05/22/19 Date of admission: 05/20/19 05:20 Expected Date of Discharge: 05/22/19 Attending physician: PRIYANK OG Primary care physician: Magdalena Hart N.P. Consults: Consult Orders 05/20/19 10:40 Consult NOW Consulting Provider: RENAE PARIKH Physician Instructions: Reason For Exam: gastroparesis Physical Exam - Vital Signs Vital Signs: Vital Signs - Last 24 Hrs Temp Pulse Resp BP BP Pulse Ox 05/22/19 09:00 87 16 05/22/19 07:20 98.1 F 87 16 140/81 98 05/22/19 03:14 98.4 F 92 H 16 129/78 100 05/21/19 21:38 98.3 F 97 H 16 168/92 98 05/21/19 16:30 97.9 F 91 H 16 130/75 99 05/21/19 11:37 98.3 F 83 16 132/84 99 - General General Appearance: Alert, Oriented x3, Cooperative, No acute distress Limitations: No limitations - Head Head exam: Atraumatic, Normal inspection - Eye Eye exam: Normal appearance, PERRL. negative: Conjunctival injection, Scleral icterus - ENT ENT exam: Normal exam, Mucous membranes moist Ear exam: Normal external inspection Nasal Exam: Normal inspection Mouth exam: Normal external inspection - Neck Neck exam: Normal inspection - Respiratory Respiratory exam: Normal lung sounds bilaterally. negative: Respiratory distress, Rhonchi, Stridor, Wheezes - Cardiovascular Cardiovascular Exam: Regular rate, Normal rhythm, Normal heart sounds Peripheral Pulses: 2+: Radial (R), Radial (L), Dorsalis Pedis (R), Dorsalis Pedis (L) - GI/Abdominal GI/Abdominal exam: Soft, Normal bowel sounds. negative: Distended, Guarding, Rebound, Rigid, Tenderness - Rectal Rectal exam: Deferred - exam: Deferred - Extremities Extremities exam: Normal inspection - Back Back exam: Denies: CVA tenderness (R), CVA tenderness (L) - Neurological Neurological exam: Alert, Oriented X3 - Psychiatric Psychiatric exam: Normal affect, Normal mood - Skin Skin exam: Dry, Intact, Normal color, Warm Hospitalization - Hospitalization Admission Diagnosis: colitis, hyperglycemia, dehydration, gastroparesis - Problem List/Discharge Diagnosis (1) Gastroparesis Current Visit: Yes Status: Acute Base Code: K31.84 - GASTROPARESIS Comment: 05/20/19 -starting reglan, continue NPO until nausea better controlled -GI consult started -continue glucose control 05/21/19 -pt glucose controlled with 50% insulin and mod S/S coverage -continue D5 IVF with advancing CLD and soft diet -continue to advance as tolerated 05/22/19 -pt tolerating eating soft diet, denies N/V/D since the addition of reglan and s/p egd/cscope -pt to d/c with reglan and zofran for nausea control -following with [facility] for 05/26/19 9am gastric emptying study (2) Colitis Current Visit: Yes Status: Acute Base Code: K52.9 - NONINFECTIVE GASTROENTERITIS AND COLITIS, UNSPECIFIED Comment: 05/20/19 -CT reveals pancolitis, pt was recently on cipro and flaygl for same 2 months ago -repeating abx until GI consult suggests otherwise 05/21/19 -pain has continued to improve with the addition of ABX and reglan 05/22/19 -continue PO cipro/flaygl for colitis (3) Dehydration Current Visit: Yes Status: Acute Base Code: E86.0 - DEHYDRATION Comment: 05/20/19 -continue IVF D5/NS with 20 mEq K at 125/hr -repeat lytes QD 05/21/19 -advance to CLD, continue IVF until reg diet 05/22/19 -pt tolerated 50-75% soft diet with adeq PO intake (4) Diarrhea Current Visit: Yes Status: Acute Discharge Diagnosis: Diarrhea type: unspecified type Qualified Code(s): R19.7 - Diarrhea, unspecified Base Code: R19.7 - DIARRHEA, UNSPECIFIED Comment: 05/20/19 -stool cultures pending, no diarrhea this admission -contact isolation continues until otherwise 05/21/19 -no diarrhea, not passing gas at this time but advancing to CLD 05/22/19 -no diarrhea, pt is passing pas (5) Hyperglycemia Current Visit: Yes Status: Acute Base Code: R73.9 - HYPERGLYCEMIA, UNSPECIFIED Comment: 05/20/19 -pt is NPO at this time with D5 infusing, long acting decreased by 50% and meal time S/S mod coverage when pt able to tolerate CLD -adjust as needed 05/21/19 - glucose controlled on 50% dosing, no uncontrolled BG noted since arrival and nausea control 05/22/19 -glucose controlled in 50% dosing, pt to increase q3 days PRN (6) Vomiting Current Visit: Yes Status: Acute Discharge Diagnosis: Vomiting type: unspecified Vomiting Intractability: unspecified Nausea presence: unspecified Qualified Code(s): R11.10 - Vomiting, unspecified Base Code: R11.10 - VOMITING, UNSPECIFIED Comment: 05/20/19 -Pt to continue antinause meds IVP, adding reglan TID -NPO until improvement and then CLD 05/21/19 -no vomiting since arrival, nausea controlled with current meds and addition of reglan 05/22/19 -no vomiting since arrival to the med/surg floor, d/c with home nauesa control meds (7) Diabetes Current Visit: No Status: Acute Discharge Diagnosis: Diabetes mellitus type: type 1 Diabetes mellitus complication status: without complication Qualified Code(s): E10.9 - Type 1 diabetes mellitus without complications Base Code: E11.9 - TYPE 2 DIABETES MELLITUS WITHOUT COMPLICATIONS Comment: 05/20/19 -continue 50% long acting with mod S/S TID -advance as needed 05/21/19 -controlled blood sugar 05/22/19 -pt to continue to advance diet and advance basglar dosing q3 days -has s/s coverage while advancing (8) Full code status Current Visit: Yes Status: Acute Base Code: Z78.9 - OTHER SPECIFIED HEALTH STATUS Comment: 05/22/19 -Full code - Hospitalization Course Disposition: Home, Self-Care Hospital Course: 49 yo female presents to [facility] ER for c/o N/V/D with complications with DM. Pt reports sudden onset N/V/D with no sick contacts, gallbladder removal 2016. Recent admission for same HFAH 2 months ago. Pt reports BG was 150 before the vomiting and 300 after. Abd pain started and pt went to ER. WBC 19.7, Hgb 14, Hct 41.5, Plt 355, Bands 22 VBG 7.46 Na 137, K 3.3, Cl 96, CO2 17, Anion Gap 24, BUN 18, Cr 0.5, GFR>60, glucose 345, LFTs wnl, lipase 24 Hcg, Neg UA neg infection but glucose 500, ketone [address] abd/plevis shows guillen colitis Pt given 1L NS and 1l D5NS with 20K @125/hr, dilaudid 0.5mg IVP, zofran 4mg IVP, phenergan 12.5mg IVPB x2 Admit colitis,n/v, hyperglycemia, gastroporesis, and hypokalemia 05/20/19 Pt resting in bed, no acute distress but report fatigue. Pt has not had diarrhea since arrival to ER and nausea/pain controlled with IV meds. Abd is hypoactive and TTP epigastric. Lungs CTA, heart RRR, no edema noted. Pt is moving all extremities with no difficulty. POC monitor and treat electrolytes, nausea and pain medications. NPO until nausea improved and then advance to CLD. GI consult ordered and reglan added TID for nausea. PCP Tanner Procedures: Imaging and X-Rays 05/20/19 03:36 ABDOMEN/PELVIS W CONTRAST [CT] Stat 05/26/19 09:00 Gastric Emptying Study [NM] Routine Cardiology Procedures 05/20/19 03:52 Machine Try Out Setter NOW Abnormal Labs: Abnormal Lab Results 05/20/19 05/20/19 05/20/19 Range/Units 02:10 02:25 02:25 WBC 19.7 H (4.2-12.2) K/uL RBC (3.80-5.40) M/uL Hgb (11.6-16.0) gm/dl Hct (35.0-47.0) % Neutrophils % (47-80) % Band Neutrophils % 22.0 H (0-5) % Lymphocytes % 5.2 L (16-45) % Lymphocytes 5.0 L (16-45) % VBG pH 7.46 H (7.33-7.43) Potassium 3.3 L (3.4-4.5) mmol/L Chloride 96 L (98-107) mmol/L Carbon Dioxide 17.0 L (22-29) mmol/L Anion Gap 24.0 H (7-16) BUN (6-20) mg/dL Creatinine (0.5-0.9) mg/dL POC Glucose (70-110) mg/dL Random Glucose 345 H (74-109) mg/dL Urine Glucose (UA) (NEGATIVE) Urine Ketones (NEGATIVE) Stool for White Cells (NO WBC'S) 05/20/19 05/20/19 05/20/19 Range/Units 05:05 05:30 08:09 WBC (4.2-12.2) K/uL RBC (3.80-5.40) M/uL Hgb (11.6-16.0) gm/dl Hct (35.0-47.0) % Neutrophils % (47-80) % Band Neutrophils % (0-5) % Lymphocytes % (16-45) % Lymphocytes (16-45) % VBG pH (7.33-7.43) Potassium (3.4-4.5) mmol/L Chloride (98-107) mmol/L Carbon Dioxide (22-29) mmol/L Anion Gap (7-16) BUN (6-20) mg/dL Creatinine (0.5-0.9) mg/dL POC Glucose 283 H 140 H (70-110) mg/dL Random Glucose (74-109) mg/dL Urine Glucose (UA) 500 mg/dl H (NEGATIVE) Urine Ketones 40 mg/dl H (NEGATIVE) Stool for White Cells (NO WBC'S) 05/20/19 05/20/19 05/20/19 Range/Units 09:20 09:20 11:30 WBC 13.0 H (4.2-12.2) K/uL RBC (3.80-5.40) M/uL Hgb (11.6-16.0) gm/dl Hct (35.0-47.0) % Neutrophils % 90.0 H (47-80) % Band Neutrophils % (0-5) % Lymphocytes % 7.2 L (16-45) % Lymphocytes 9.0 L (16-45) % VBG pH (7.33-7.43) Potassium (3.4-4.5) mmol/L Chloride (98-107) mmol/L Carbon Dioxide (22-29) mmol/L Anion Gap (7-16) BUN (6-20) mg/dL Creatinine (0.5-0.9) mg/dL POC Glucose 166 H (70-110) mg/dL Random Glucose 166 H (74-109) mg/dL Urine Glucose (UA) (NEGATIVE) Urine Ketones (NEGATIVE) Stool for White Cells (NO WBC'S) 05/20/19 05/20/19 05/20/19 Range/Units 12:39 17:50 19:37 WBC (4.2-12.2) K/uL RBC (3.80-5.40) M/uL Hgb (11.6-16.0) gm/dl Hct (35.0-47.0) % Neutrophils % (47-80) % Band Neutrophils % (0-5) % Lymphocytes % (16-45) % Lymphocytes (16-45) % VBG pH (7.33-7.43) Potassium (3.4-4.5) mmol/L Chloride (98-107) mmol/L Carbon Dioxide (22-29) mmol/L Anion Gap (7-16) BUN (6-20) mg/dL Creatinine (0.5-0.9) mg/dL POC Glucose 166 H 153 H (70-110) mg/dL Random Glucose (74-109) mg/dL Urine Glucose (UA) (NEGATIVE) Urine Ketones (NEGATIVE) Stool for White Cells Few wbc's observed H (NO WBC'S) 05/20/19 05/21/19 05/21/19 Range/Units 22:20 08:30 10:57 WBC (4.2-12.2) K/uL RBC 3.79 L (3.80-5.40) M/uL Hgb 11.2 L (11.6-16.0) gm/dl Hct 34.1 L (35.0-47.0) % Neutrophils % (47-80) % Band Neutrophils % (0-5) % Lymphocytes % (16-45) % Lymphocytes (16-45) % VBG pH (7.33-7.43) Potassium (3.4-4.5) mmol/L Chloride (98-107) mmol/L Carbon Dioxide (22-29) mmol/L Anion Gap (7-16) BUN (6-20) mg/dL Creatinine (0.5-0.9) mg/dL POC Glucose 125 H 162 H (70-110) mg/dL Random Glucose (74-109) mg/dL Urine Glucose (UA) (NEGATIVE) Urine Ketones (NEGATIVE) Stool for White Cells (NO WBC'S) 05/21/19 05/21/19 Range/Units 10:57 22:00 WBC (4.2-12.2) K/uL RBC (3.80-5.40) M/uL Hgb (11.6-16.0) gm/dl Hct (35.0-47.0) % Neutrophils % (47-80) % Band Neutrophils % (0-5) % Lymphocytes % (16-45) % Lymphocytes (16-45) % VBG pH (7.33-7.43) Potassium (3.4-4.5) mmol/L Chloride (98-107) mmol/L Carbon Dioxide (22-29) mmol/L Anion Gap (7-16) BUN 4 L (6-20) mg/dL Creatinine 0.4 L (0.5-0.9) mg/dL POC Glucose 129 H (70-110) mg/dL Random Glucose 125 H (74-109) mg/dL Urine Glucose (UA) (NEGATIVE) Urine Ketones (NEGATIVE) Stool for White Cells (NO WBC'S) Condition at Discharge: (2) Stable Discharge Medications - Discharge Medications Prescriptions: Ciprofloxacin HCl [Cipro] 500 mg PO Q12HR 7 Days #14 tablet Metronidazole [Flagyl] 500 mg PO Q8H 7 Days #21 tablet Metoprolol Tartrate [Lopressor] 25 mg PO BID 30 Days #60 tab Metoclopramide HCl [Reglan] 10 mg PO WMEALS 10 Days #90 tablet Ondansetron [Zofran Odt] 4 mg PO Q8H PRN 5 Days #15 tab.rapdis PRN Reason: Nausea Home Medications: Ambulatory Orders Cholecalciferol (Vitamin D3) [Vitamin D3] 2,000 unit PO QHS 05/20/19 [Last Taken Unknown] Insulin Aspart [Novolog Flexpen] 10 unit SQ TIDAC 05/20/19 [Last Taken Unknown] Insulin Glargine,Hum.rec.anlog [Basaglar Kwikpen U-100] 36 unit SQ BID 05/20/19 [Last Taken Unknown] Lisinopril 20 mg PO QHS 05/20/19 [Last Taken Unknown] Multivit-Min/Iron/Folic/Vit K1 [Centrum Chewables Adults Tab] 1 each PO QHS 05/20/19 [Last Taken Unknown] Venlafaxine HCl [Venlafaxine HCl ER] 150 mg PO QHS 05/20/19 [Last Taken Unknown] Ciprofloxacin HCl [Cipro] 500 mg PO Q12HR 7 Days #14 tablet 05/22/19 [Last Taken Unknown] Insulin Aspart [Novolog Flexpen] 1 unit SQ TIDINS ml 05/22/19 [Last Taken Unknown] Magnesium Citrate [Citrate of Magnesia] 150 ml PO ONCE PRN btl 05/22/19 [Last Taken Unknown] Metoclopramide HCl [Reglan] 10 mg PO WMEALS 10 Days #90 tablet 05/22/19 [Last Taken Unknown] Metoprolol Tartrate [Lopressor] 25 mg PO BID 30 Days #60 tab 05/22/19 [Last Taken Unknown] Metronidazole [Flagyl] 500 mg PO Q8H 7 Days #21 tablet 05/22/19 [Last Taken Unknown] Ondansetron [Zofran Odt] 4 mg PO Q8H PRN 5 Days #15 tab.rapdis 05/22/19 [Last Taken Unknown] Polyethylene Glycol 3350 [Miralax] 255 gm PO DAILY packet 05/22/19 [Last Taken Unknown] Discharge Plan - Discharge Instructions Activity at Discharge: Increase Activity as Tolerated Diet at Discharge: Advance to Usual Diet Instructions: Diabetic Gastroparesis (DC) Additional Instructions: Follow up with Magdalena Hart at [facility] on 06/02 at 6:40 Gastric Emptying Study scheduled 05/26/19 at 9am. Please use entrance A, register there before procedure. You have the pre-procedure instructions in your discharge plan. For your insulin needs, increase your basaglar 2 units every 3 days for blood sugar of 80-120 in the AM fasting. Alternate AM and PM increasing every other time as you advance to your regular diet. Please use your sliding scale insulin for coverage until you have return to your baseline control. Take Reglan three times a day before meals and zofran in between for nausea control. Please follow the gastroparesis diet while you are recovering from this recently illness. Follow up with Magdalena next week to monitor your symptoms and recovery. Quality Measures - Quality Measures Quality Measures: Documentation of Current Medications in Medical Record, Screening for High Blood Pressure and F/U Documented - Current Medications Quality Measure: Measure #130: Documentation of Current Medications Documentation of Current Medications: <Current Medications Documented/Reviewed> [G8427] - Blood Pressure Screening Quality Measure: Screening for High Blood Pressure and Follow-Up Documented Does Patient Have Any of the Following: Active Dx of HTN Blood Pressure Classification: Hypertensive Reading Systolic Measurement: 192 Diastolic Measurement: 93 Screening for High Blood Pressure: Patient Exclusion, Hx of HTN [G9744] - Elder Abuse Suspicion Index EASI Reference Information: Esther DIXON, Tyler C, Rick D, Chani Ortega.Development and validation of a tool to assist physicians identification of elder abuse: The Elder Abuse Suspicion Index (EASI ). Journal of Elder Abuse and Neglect, 2008; 20 (3): 276-300.
--- NOTE | 2019-06-09 13:01 | Operative Note ---
SURGEON: Thompson Stoner MD OPERATION: COLONOSCOPY. INDICATIONS: This is a 49-year-old female with history of diarrhea and abdominal pain who had upper endoscopy the day before that was normal and now presented for colonoscopy. POSTOPERATIVE DIAGNOSES: 1. Normal colonic and terminal ileal mucosa with no neoplastic or ulcerative lesions. 2. Grade 1 internal hemorrhoids. ANESTHESIA: Sedation is per Anesthesia. Pulse oximetry was monitored throughout the procedure to maintain O2 saturation of 90% or greater. Supplemental oxygen was administered via nasal cannula. Cardiac and vital signs were monitored throughout the duration of the procedure, and they were stable. The procedure of colonoscopy and risks and alternatives of the procedure, including the risk of bleeding and perforation, among others, were explained to the patient who voiced understanding and agreed to have the procedure done. Physical examination was performed, and the patient was found stable for sedation. PROCEDURE: The patient was placed in the left lateral position. Sedation was initiated. A digital rectal exam was performed and showed some mild external hemorrhoids with no palpable rectal masses. An Olympus PCF-180AL colonoscope was then inserted into the rectum under direct visualization. It was advanced to the cecum without difficulty. The ileocecal valve and appendiceal orifice were identified and photographed. The colonic mucosa was carefully examined upon introduction of the colonoscope. There were no lesions noted. The ileocecal valve was intubated and terminal ileal mucosa was inspected for about 10 cm and it appeared normal. The colonoscope was then withdrawn while carefully examining the colonic mucosal surfaces. No other lesions were noted. Random colon biopsies were obtained to rule out microscopic colitis. In the rectum, retroflexion was performed and grade 1 internal hemorrhoids were noted. The colonoscope was then withdrawn and the procedure was terminated. The patient tolerated the procedure well without any immediate complications. The patient remained with stable vital signs and was transferred to the recovery room. RECOMMENDATIONS: 1. The patient should be on a high-fiber diet. 2. The patient is to have a repeat colonoscopy for screening purposes in about 10 years, and I would be happy to see her back in the office as needed. Thank you for allowing me to participate in the care of your patient. SARITHA
== END 2019-05-22 11:35 | disposition home or self-care (01) ==
LOC: ER 01:53 → MEDSURG 05:20
PROVIDERS: ADMIT Internal Medicine; ATTEND Internal Medicine
PROC: 0DB68ZX Excision of Stomach, Via Natural or Artificial Opening Endoscopic, Diagnostic (ICD-10-PCS; principal; 2019-05-20)
PROC: 0DBE8ZX Excision of Large Intestine, Via Natural or Artificial Opening Endoscopic, Diagnostic (ICD-10-PCS; 2019-05-21)
DX: K52.9 Noninfective gastroenteritis and colitis, unspecified (principal); R73.9 Hyperglycemia, unspecified; E86.0 Dehydration; K31.84 Gastroparesis; R19.7 Diarrhea, unspecified; K29.70 Gastritis, unspecified, without bleeding; R10.9 Unspecified abdominal pain; K64.0 First degree hemorrhoids; I10 Essential (primary) hypertension; E11.9 Type 2 diabetes mellitus without complications; Z79.4 Long term (current) use of insulin; Z87.891 Personal history of nicotine dependence; Z23 Encounter for immunization; Z90.49 Acquired absence of other specified parts of digestive tract; E87.6 Hypokalemia
CPT/HCPCS: 36416; 74177; 80048; 80053; 81003; 82009; 82272; 82800; 82948; 83690; 83735; 84703; 85025; 85027; 87329; 87425; 87493; 89055; 90686; 96374; 96375; 99217; 99220; 99285; J1200; J1650; J2405; J2550; J3480; J7030

== ENCOUNTER 2019-07-25 02:25 | Observation (INO) | payer OTHER ==
[2019-07-25] MEDS ORDERED: ONDANSETRON HCL IV 4 MG/2 ML VIAL IVP ONE (02:45)
[2019-07-25] MEDS ORDERED: 0.9 % SODIUM CHLORIDE 1000ML 1,000 ML IV SCH (02:45)
[2019-07-25] MEDS ORDERED: HYOSCYAMINE SULFATE ODT 0.125 MG TAB.SUBL SL ONE (02:45)
[2019-07-25] MEDS ORDERED: PROMETHAZINE HCL 25 MG in 0.9 % SODIUM CHLORIDE 100ML 100 ML IVPB ONE (02:52)
[2019-07-25] MEDS ORDERED: DIPHENHYDRAMINE HCL 50 MG/ML VIAL IVP ONE ×2 (02:52→04:19)
--- NOTE | 2019-07-25 02:52 | Emergency Department Record ---
History of Present Illness - General Chief complaint: Nausea, Vomiting, Diarrhea Stated complaint: NAUSEA/VOMITING Time Seen by Provider: 07/25/19 02:45 Source: Patient Mode of Arrival: Ambulatory Limitations: No limitations - History of Present Illness Initial comments: 49 yo female presents to ED for evaluation of nausea and vomiting that began approximately 4 hours ago. Patient reports that she is s/p cholecystectomy, reports a history of delayed gastric emptying that results in similar symptoms previously. Patient denies fevers, chills, or cough symptoms, denies loose stools. Patient reports "I just need some IV nausea medication to feel better". Patient denies history of pancreatitis previously, does report a history of IDDM. MD complaint: Nausea, Vomiting Onset/Timin -: Hour(s) Description of Vomiting: Other Associated Abdominal Pain: Yes Location: Epigastric Radiation: None Severity scale (1-10): 6 Quality: Cramping Consistency: Constant Improves with: None Worsens with: None Associated Symptoms: Denies other symptoms - Related Data Previous Rx's Medication Instructions Recorded Ondansetron [Zofran Odt] 4 mg PO Q6H PRN #15 tab.rapdis 07/25/19 Allergies Allergy/AdvReac Type Severity Reaction Status Date / Time morphine AdvReac VOMITING Verified 07/25/19 02:42 Travel Screening - Travel/Exposure Within Last 30 Days Have you traveled within the last 30 days?: No - Travel/Exposure Within Last Year Have you traveled outside the [place] in the last year?: No - Travel Symptoms Symptom Screening: Diarrhea, Vomiting Review of Systems Constitutional: Denies: Chills, Fever, Malaise, Night sweats Eyes: Denies: Eye discharge, Eye pain ENT: Denies: Congestion, Ear pain, Epistaxis Respiratory: Denies: Cough, Dyspnea Cardiovascular: Denies: Chest pain, Dyspnea on exertion Endocrine: Denies: Fatigue, Heat or cold intolerance Gastrointestinal: Reports: Abdominal pain, Nausea, Vomiting. Denies: Constipation Genitourinary: Denies: Incontinence, Retention Musculoskeletal: Denies: Arthralgia, Back pain, Gout, Joint swelling Skin: Denies: Bruising, Change in color Neurological: Denies: Abnormal gait, Confusion, Headache, Seizure Psychiatric: Denies: Anxiety Hematological/Lymphatic: Denies: Anemia, Blood Clots Past Medical History - SOCIAL HISTORY Smoking Status: Former smoker Alcohol Use: None Drug Use Detail:: Marijuana - RESPIRATORY Hx Respiratory Disorders: No - CARDIOVASCULAR Hx Cardio Disorders: Yes Hx Hypertension: Yes - NEURO Hx Neuro Disorders: No - GI Hx GI Disorders: Yes Hx Abdominal Pain: Yes (recently hospitalized for colitis (>30 days ago)) Hx Irritable Bowel: Yes Comment:: Gastroparesis - Hx Genitourinary Disorders: Yes Hx UTI: Yes (Hx frequent UTI) - ENDOCRINE Hx Endocrine Disorders: Yes Hx Diabetes: Yes Comment:: CHECKS BLOOD SUGARS 5X/DAY - MUSCULOSKELETAL Hx Musculoskeletal Disorders: No - PSYCH Hx Psych Problems: Yes Hx Anxiety: Yes Hx Depression: Yes - HEMATOLOGY/ONCOLOGY Hx Hematology/Oncology Disorders: No Family Medical History Any Significant Family History?: No Physical Exam - General General Appearance: Alert, Oriented x3, Cooperative, Moderate distress Limitations: No limitations - Head Head exam: Atraumatic, Normocephalic, Normal inspection Head exam detail: negative: Abrasion, Contusion, Marroquin's sign, General tenderness, Hematoma, Laceration - Eye Eye exam: Normal appearance. negative: Conjunctival injection, Periorbital swelling, Periorbital tenderness, Scleral icterus - ENT Ear exam: negative: Auricular hematoma, Auricular trauma Nasal Exam: negative: Active bleeding, Discharge, Dried blood, Foreign body Mouth exam: negative: Drooling, Laceration, Muffled voice, Tongue elevation - Neck Neck exam: Normal inspection. negative: Meningismus, Tenderness - Respiratory Respiratory exam: Normal lung sounds bilaterally. negative: Rales, Respiratory distress, Rhonchi, Stridor - Cardiovascular Cardiovascular Exam: Regular rate, Normal rhythm, Normal heart sounds - GI/Abdominal GI/Abdominal exam: Soft, Tenderness (TTP epigastric region on examination, no rebound, no guarding symptoms are present.). negative: Rebound, Rigid - Rectal Rectal exam: Deferred - exam: Deferred - Extremities Extremities exam: Normal inspection. negative: Pedal edema, Tenderness - Back Back exam: Denies: CVA tenderness (R), CVA tenderness (L) - Neurological Neurological exam: Alert, Normal gait, Oriented X3 - Psychiatric Psychiatric exam: Anxious - Skin Skin exam: Normal color. negative: Abrasion Type of lesion: negative: abrasion Course Vital Signs 07/25/19 02:32 Pulse Rate [ 93 H Pulse Ox Probe] Respiratory 28 H Rate Blood Pressure 178/121 [Left Arm] Pulse Ox 98 - Reevaluation(s) Reevaluation #1: 07/25/19 04:08 Laboratory studies were reviewed and appear grossly unremarkable for an acute process except for the following: WBC 21.3 [address]ase [address] Abdomen and pelvis: Cystic structure left adenexa No acute process Patient was reassessed and reports very little improvement in her nausea/vomiting symptoms. Elevated WBC likely secondary to acute phase reactant. Glucose 317 without evidence for DKA (normal CO2). Due to minimal improvement in her symptoms, will admit for further evaluation. Reevaluation #2: 07/25/19 06:51 Case was discussed with Dr. Goldstein, will accept the patient for admission at this time. Medical Decision Making - Lab Data Result diagrams: 07/25/19 02:54 07/25/19 02:54 Disposition Disposition: Admit Clinical Impression: IDDM (insulin dependent diabetes mellitus) Nausea & vomiting Qualifiers: Vomiting type: unspecified Vomiting Intractability: non-intractable Qualified Code(s): R11.2 - Nausea with vomiting, unspecified Leukocytosis Qualifiers: Leukocytosis type: bandemia Qualified Code(s): D72.825 - Bandemia Disposition: Still a Patient at [facility] Decision to Admit: Admit from ER Decision to Admit Date: 07/25/19 Decision to Admit Time: 04:21 Condition: (2) Stable Time of Disposition: 04:16 Quality - Quality Measures Quality Measures: N/A - Blood Pressure Screening Does Patient Have Any of the Following: Active Dx of HTN Blood Pressure Classification: Pre-Hypertensive BP Reading Systolic Measurement: 178 Diastolic Measurement: 87 Screening for High Blood Pressure: Patient Exclusion, Hx of HTN [G9744]
[2019-07-25 03:01] LABS: ABSOLUTE NEUTROPHIL COUNT 18.93; BASO % 0.1 % (0-6); EOS % 0.3 % (0-6); HEMOGLOBIN 13.9 gm/dl (11.6-16.0); LYMPH % 5.1 % (16-45); MEAN CORPUSCULAR HEMOGLOBIN 29.8 pg (27-33); MEAN CORPUSCULAR HGB CONC 33.9 g/dl (32-36); MEAN PLATELET VOLUME 9.9 fl (7.4-10.4); MONO % 5.5 % (0-9); PLATELET COUNT 330 K/uL (130-400); RED BLOOD COUNT 4.66 M/uL (3.80-5.40); RED CELL DISTRIBUTION WIDTH 12.3 % (11.5-14.5)
[2019-07-25 03:10] LABS: WHITE BLOOD COUNT W/O DIFF 21.3 K/uL (4.2-12.2)
[2019-07-25 03:16] LABS: BLOOD UREA NITROGEN 18 mg/dL (6-20); CREATININE 0.6 mg/dL (0.5-0.9); EST GLOMERULAR FILTRATION RATE > 60 mL/min
[2019-07-25 03:17] LABS: LIPASE 67 U/L (13-60)
[2019-07-25 03:19] LABS: GLUCOSE,RANDOM 317 mg/dL (74-109)
[2019-07-25 03:21] LABS: ALB/GLOB RATIO 1.5 (1.1-1.8); ALBUMIN 4.8 g/dL (4.0-5.0); ALT/SGPT 16 U/L (<33); AST/SGOT 18 U/L (10.0-35.0)
[2019-07-25 03:22] LABS: ALKALINE PHOSPHATASE 43 U/L (35-104)
[2019-07-25 03:25] LABS: PLATELET ESTIMATE NORMAL (NORMAL); TOXIC GRANULATION 1+
--- NOTE | 2019-07-25 04:05 | CT SCAN REPORT ---
EXAMINATION: CT Abdomen and Pelvis with IV Contrast EXAM DATE: 07/25/2019 4:01 AM TECHNIQUE: CT imaging of the abdomen and pelvis was performed with intravenous contrast. Coronal and sagittal images were reconstructed. IV Contrast: The amount and type of contrast are recorded in the medical record. INDICATION: pain, nausea, vomiting COMPARISON: 05/20/2019. ENCOUNTER: Not applicable CT ABDOMEN AND PELVIS FINDINGS: Lung Bases: Included extent of the lung bases are clear. Hepatobiliary: The liver has a normal size with a smooth surface. The hepatic and portal veins appear patent. The gallbladder is absent. There is no biliary dilatation. Pancreas: The pancreas is normal. Spleen: The spleen is not enlarged. Adrenals: The adrenal glands are normal. Kidneys, Ureters, & Bladder: Both kidneys have a normal size and there is no hydronephrosis. Both ur eters have a normal caliber and the urinary bladder is unremarkable. Gastrointestinal: The stomach and small bowel are normal with no obstruction or inflammation. The nuha endix is normal. The large bowel is normal. Reproductive Organs: There is a left adnexal cystic structure measuring 1.5 cm. Otherwise unremarkabl e. Lymphatic System: There is no adenopathy within the abdomen or pelvis. Vasculature: Normal caliber abdominal aorta. Peritoneum: No free fluid, free air, or inflammation Abdominal Wall & Musculoskeletal: No suspicious bone lesions. IMPRESSION: 1. There is a left adnexal cystic structure which is likely physiologic, but possibly a source of pa in. 2. Otherwise unremarkable examination. Dictated by: Shanda Mullen MD on 07/25/2019 4:00 AM. .
[2019-07-25] MEDS ORDERED: LORAZEPAM 2 MG/ML VIAL IV ONE (04:19)
[2019-07-25] MEDS ORDERED: 0.9 % SODIUM CHLORIDE 1000ML 1,000 ML IV ONE (04:43)
[2019-07-25] MEDS ORDERED: ONDANSETRON HCL IV 4 MG/2 ML VIAL IVP PRN (04:43)
--- NOTE | 2019-07-25 05:49 | History & Physical ---
History of Present Illness - Date of Service Date of Service for History & Physical: 07/25/19 - History of Present Illness Admitting Diagnosis: Intractable nausea, vomiting. Leukocytosis. IDDM History of Present Illness: Ms. Bartholomew is 49 y/o female with diabetes II here with complaint of nausea and vomiting for about 4 hours last night. The patient states that she had just eaten some tacos and then her symptoms began. She says that she has had episodes of this before and that she recently had a gastric emptying study but doesn't know the results. She says that she tried taking Zofran but this did didn't help her symptoms. She also states that her diabetes is well controlled but her last Ha1c in December was 10.3. On arrival to ED the patient still had nausea and vomiting and was started on on IV reglan, benadryl and fluids. Her vomiting had resolved but she still had nausea and was admitted for observation. Travel Screening - Travel/Exposure Within Last 30 Days Have you traveled within the last 30 days?: No - Travel/Exposure Within Last Year Have you traveled outside the [place] in the last year?: No - Travel Symptoms Symptom Screening: Diarrhea, Vomiting Review of Systems Constitutional: Denies: Chills, Fever, Malaise, Night sweats Eyes: Denies: Eye discharge, Eye pain ENT: Denies: Congestion, Ear pain, Epistaxis Respiratory: Denies: Cough, Dyspnea Cardiovascular: Denies: Chest pain, Dyspnea on exertion Endocrine: Denies: Fatigue, Heat or cold intolerance Gastrointestinal: Reports: Abdominal pain, Nausea, Vomiting. Denies: Constipation Genitourinary: Denies: Incontinence, Retention Musculoskeletal: Denies: Arthralgia, Back pain, Gout, Joint swelling Skin: Denies: Bruising, Change in color Neurological: Denies: Abnormal gait, Confusion, Headache, Seizure Psychiatric: Denies: Anxiety Hematological/Lymphatic: Denies: Anemia, Blood Clots Past Medical History - SOCIAL HISTORY Smoking Status: Former smoker Alcohol Use: None Drug Use Detail:: Marijuana - RESPIRATORY Hx Respiratory Disorders: No - CARDIOVASCULAR Hx Cardio Disorders: Yes Hx Hypertension: Yes - NEURO Hx Neuro Disorders: No - GI Hx GI Disorders: Yes Hx Abdominal Pain: Yes (recently hospitalized for colitis (>30 days ago)) Hx Irritable Bowel: Yes Comment:: Gastroparesis - Hx Genitourinary Disorders: Yes Hx UTI: Yes (Hx frequent UTI) - ENDOCRINE Hx Endocrine Disorders: Yes Hx Diabetes: Yes Comment:: CHECKS BLOOD SUGARS 5X/DAY - MUSCULOSKELETAL Hx Musculoskeletal Disorders: No - PSYCH Hx Psych Problems: Yes Hx Anxiety: Yes Hx Depression: Yes - HEMATOLOGY/ONCOLOGY Hx Hematology/Oncology Disorders: No Family Medical History Any Significant Family History?: No H&P Meds/Allergies - Allergies Allergies: Allergies Allergy/AdvReac Type Severity Reaction Status Date / Time morphine AdvReac VOMITING Verified 07/25/19 02:42 - Home Medications Previous Rx's Medication Instructions Recorded Ondansetron [Zofran Odt] 4 mg PO Q6H PRN #15 tab.rapdis 07/25/19 - Active Medications Active Medications: Current Medications Sodium Chloride () 1,000 mls @ 0 mls/hr IV .Q0M [facility] Last Infusion: 07/25/19 04:32 Dose: Infused Documented by: Sodium Chloride () 1,000 mls @ 125 mls/hr IV .Q8H ONE Stop: 07/25/19 12:42 Insulin Detemir (Levemir Flextouch) 36 unit SQ BID [facility] Lisinopril (Zestril) 20 mg PO DAILY [facility] Metoprolol Tartrate (Lopressor) 25 mg PO BID [facility] Ondansetron HCl (Zofran) 4 mg IVP Q4H PRN PRN Reason: NAUSEA Trazodone HCl (Desyrel) 50 mg PO QHS RAI Venlafaxine HCl (Effexor Xr) 150 mg PO DAILY [facility] Physical Exam - Vital Signs Vital Signs: Vital Signs - Last 24 Hrs Temp Pulse Resp BP Pulse Ox 07/25/19 04:55 97.8 F 100 H 16 178/87 94 L 07/25/19 03:53 98 F 106 H 20 163/79 97 07/25/19 02:32 93 H 28 H 178/121 98 - General General Appearance: Alert, Oriented x3, Cooperative, Moderate distress Limitations: No limitations - Head Head exam: Atraumatic, Normocephalic, Normal inspection Head exam detail: negative: Abrasion, Contusion, Marroquin's sign, General tenderness, Hematoma, Laceration - Eye Eye exam: Normal appearance. negative: Conjunctival injection, Periorbital swelling, Periorbital tenderness, Scleral icterus - ENT Ear exam: negative: Auricular hematoma, Auricular trauma Nasal Exam: negative: Active bleeding, Discharge, Dried blood, Foreign body Mouth exam: negative: Drooling, Laceration, Muffled voice, Tongue elevation - Neck Neck exam: Normal inspection. negative: Meningismus, Tenderness - Respiratory Respiratory exam: Normal lung sounds bilaterally. negative: Rales, Respiratory distress, Rhonchi, Stridor - Cardiovascular Cardiovascular Exam: Regular rate, Normal rhythm, Normal heart sounds Peripheral Pulses: 3+: Radial (R), Radial (L), Dorsalis Pedis (R), Dorsalis Pedis (L) - GI/Abdominal GI/Abdominal exam: Soft, Normal bowel sounds. negative: Rebound, Rigid, Tenderness - Rectal Rectal exam: Deferred - exam: Deferred - Extremities Extremities exam: Normal inspection. negative: Pedal edema, Tenderness - Back Back exam: Denies: CVA tenderness (R), CVA tenderness (L) - Neurological Neurological exam: Alert, Normal gait, Oriented X3 - Psychiatric Psychiatric exam: Anxious - Skin Skin exam: Normal color. negative: Abrasion Type of lesion: negative: abrasion Results - Labs Result Diagrams: 07/25/19 02:54 07/25/19 02:54 Labs Last 24 Hours: Laboratory Results - last 24 hr 07/25/19 07/25/19 02:54 02:54 WBC 21.3 H* RBC 4.66 Hgb 13.9 Hct 41.0 MCV 88.0 MCH 29.8 MCHC 33.9 RDW 12.3 Plt Count 330 MPV 9.9 Neutrophils % 63.0 Band Neutrophils % 25.0 H Lymphocytes % 5.1 L Monocytes % 5.5 Eosinophils % 0.3 Basophils % 0.1 Absolute Neutrophils 18.93 Lymphocytes 10.0 L Monocytes 1.0 Metamyelocytes 1.0 Toxic Granulation 1+ Platelet Estimate Normal RBC Morphology Normal Sodium 135 L Potassium 3.5 Chloride 93 L Carbon Dioxide 22.0 Anion Gap 20.0 H BUN 18 Creatinine 0.6 Estimated GFR > 60 Random Glucose 317 H Calcium 9.7 Total Bilirubin 0.30 AST 18 ALT 16 Alkaline Phosphatase 43 Total Protein 8.0 Albumin 4.8 Globulin 3.2 Albumin/Globulin Ratio 1.5 Lipase 67 H VTE H&P Assessment - Risk for VTE Risk for VTE: Yes Risk Level: Moderate Risk Assessment Date: 07/25/19 Risk Assessment Time: 09:58 VTE Orders Placed or Will Be Placed: Yes Plan - Detailed Diagnosis and Plan (1) Anxiety Current Visit: Yes Status: Acute Base Code: F41.9 - ANXIETY DISORDER, UNSPECIFIED Comment: - 07/25/19: - Ativan 1mg once, resume Effexor 150mg daily. (2) Leukocytosis Current Visit: Yes Status: Acute Qualifiers: Leukocytosis type: bandemia Qualified Code(s): D72.825 - Bandemia Base Code: D72.829 - ELEVATED WHITE BLOOD CELL COUNT, UNSPECIFIED Comment: 07/25/19: - WBCs 22K, likely reactive. CT abdomen/pelvis negative for acute intrabdominal findings. - Repeat CBC w/ diff at discharge. (3) Nausea & vomiting Current Visit: Yes Status: Acute Qualifiers: Vomiting type: unspecified Vomiting Intractability: non-intractable Qualified Code(s): R11.2 - Nausea with vomiting, unspecified Base Code: R11.2 - NAUSEA WITH VOMITING, UNSPECIFIED Comment: 07/25/19: - Continue with Zofran 4mg Q4H PRN, Reglan 5mg Q6H PRN. - IVF: 0.9% @ 125mL/hr. Advancediat as tolerated. (4) HTN, goal below 140/80 Current Visit: Yes Status: Acute Base Code: I10 - ESSENTIAL (PRIMARY) HYPERTENSION Comment: 07/25/19: - Resume Metoprolol 25mg BID and Lisinopril 20mg QD. (5) Diabetes Current Visit: No Status: Acute Qualifiers: Diabetes mellitus type: type 1 Diabetes mellitus complication status: without complication Qualified Code(s): E10.9 - Type 1 diabetes mellitus without complications Base Code: E11.9 - TYPE 2 DIABETES MELLITUS WITHOUT COMPLICATIONS Comment: 07/25/19: - Serum glucose 317 on admission. Last Ha1c 10.3% 12/2018. - Resume Levemir 36 units BID. Sliding scale low dose. Accuchecks AcHs and ADA diet. (6) DVT prophylaxis Current Visit: Yes Status: Acute Base Code: Z29.9 - ENCOUNTER FOR PROPHYLACTIC MEASURES, UNSPECIFIED Comment: 07/22/19: - Lovenox 40m sq qd (7) Full code status Current Visit: No Status: Acute Base Code: Z78.9 - OTHER SPECIFIED HEALTH STATUS Comment: 07/25/19 - Full code status
[2019-07-25] MEDS ORDERED: ALPRAZOLAM 1 MG TAB PO ONE (08:20)
[2019-07-25] MEDS: LISINOPRIL 20 MG TABLET PO SCH ×2 (08:26→09:12)
[2019-07-25] MEDS: METOPROLOL TART 25 MG TABLET PO SCH ×2 (08:27→09:12)
[2019-07-25] MEDS: VENLAFAXINE ER 75 MG CAPSULE PO SCH ×2 (08:27→09:12)
[2019-07-25] MEDS ORDERED: LEVEMIR FLEXTOUCH 100 UNIT/ML INSULIN PEN SQ SCH (10:00)
[2019-07-25] MEDS ORDERED: METOCLOPRAMIDE HCL 10 MG/2 ML VIAL IVP PRN (10:02)
[2019-07-25] MEDS ORDERED: ENOXAPARIN 40 MG/0.4 ML SYR SQ SCH (10:15)
[2019-07-25] MEDS ORDERED: TRAZODONE 50 MG TABLET PO SCH (22:00)
== END 2019-07-25 12:18 | disposition home or self-care (01) ==
LOC: ER 02:25 → MEDSURG 04:48 → UNDOADMOB 04:48 → MEDSURG 05:47
PROVIDERS: ADMIT Internal Medicine; ATTEND Internal Medicine
DX: E11.9 Type 2 diabetes mellitus without complications (principal); Z79.4 Long term (current) use of insulin; D72.825 Bandemia; I10 Essential (primary) hypertension; Z90.49 Acquired absence of other specified parts of digestive tract; Z87.891 Personal history of nicotine dependence
CPT/HCPCS: 83690; 80053; 85027; 74177; G0378; Q9967; J1980; J2405; J2060; 96365; 96366; 96374; 96375; 99220; 99285; J1200; J2550; J2765; J7030

== ENCOUNTER 2019-07-27 03:39 | Emergency (ER) | payer OTHER ==
[2019-07-27] MEDS ORDERED: ONDANSETRON HCL IV 4 MG/2 ML VIAL IVP ONE ×2 (03:46→06:00)
[2019-07-27] MEDS ORDERED: METOCLOPRAMIDE HCL 10 MG/2 ML VIAL IVP ONE (03:46)
[2019-07-27] MEDS ORDERED: DIPHENHYDRAMINE HCL 50 MG/ML VIAL IVP ONE (03:46)
--- NOTE | 2019-07-27 03:50 | Emergency Department Record ---
History of Present Illness - General Chief Complaint: Abdominal Pain Stated Complaint: ABDOMINAL PAIN Time Seen by Provider: 07/27/19 03:41 Source: Patient Mode of Arrival: Ambulatory Limitations: No limitations - History of Present Illness Initial Comments: 49 yo female returns to ED for recurrent nausea, vomiting, and abdominal pain symptoms following admission for similar symptoms approximately 24 hours ago. Patient is s/p cholecystectomy previously, has a history of IDDM and has been diagnosed with a "gastric emptying disorder" previously (? gastroparesis?). Patient denies fevers, chills, or change in stools. Patient does report previous symptoms previously. -: Hour(s) Location: Diffuse Radiation: None Migration to: No migration Severity: Moderate Consistency: Constant Improves With: Nothing Worsens With: Eating Associated Symptoms: Denies other symptoms - Related Data Previous Rx's Medication Instructions Recorded Ondansetron [Zofran Odt] 4 mg PO Q6H PRN #15 tab.rapdis 07/25/19 Allergies Allergy/AdvReac Type Severity Reaction Status Date / Time morphine AdvReac VOMITING Verified 07/25/19 02:42 Review of Systems Constitutional: Denies: Chills, Fever, Malaise, Night sweats Eyes: Denies: Eye discharge, Eye pain ENT: Denies: Congestion, Ear pain, Epistaxis Respiratory: Denies: Cough, Dyspnea Cardiovascular: Denies: Chest pain, Dyspnea on exertion Endocrine: Denies: Fatigue, Heat or cold intolerance Gastrointestinal: Reports: Abdominal pain, Nausea, Vomiting. Denies: Constipation Genitourinary: Denies: Incontinence, Retention Musculoskeletal: Denies: Arthralgia, Back pain Skin: Denies: Bruising, Change in color Neurological: Denies: Abnormal gait, Confusion, Headache, Seizure Psychiatric: Denies: Anxiety Hematological/Lymphatic: Denies: Anemia, Blood Clots Past Medical History - SOCIAL HISTORY Smoking Status: Former smoker Drug Use Detail:: Marijuana - RESPIRATORY Hx Respiratory Disorders: No - CARDIOVASCULAR Hx Cardio Disorders: Yes Hx Hypertension: Yes - NEURO Hx Neuro Disorders: No - GI Hx GI Disorders: Yes Hx Abdominal Pain: Yes (recently hospitalized for colitis (>30 days ago)) Hx Irritable Bowel: Yes Comment:: Gastroparesis - Hx Genitourinary Disorders: Yes Hx UTI: Yes (Hx frequent UTI) - ENDOCRINE Hx Endocrine Disorders: Yes Hx Diabetes: Yes Comment:: CHECKS BLOOD SUGARS 5X/DAY - MUSCULOSKELETAL Hx Musculoskeletal Disorders: No - PSYCH Hx Psych Problems: Yes Hx Anxiety: Yes Hx Depression: Yes - HEMATOLOGY/ONCOLOGY Hx Hematology/Oncology Disorders: No Physical Exam - General General Appearance: Alert, Oriented x3, Cooperative, Moderate distress (patient is dry-heaving on examination) Limitations: No limitations - Head Head exam: Atraumatic, Normocephalic, Normal inspection Head exam detail: negative: Abrasion, Contusion, Marroquin's sign, General tenderness, Hematoma, Laceration - Eye Eye exam: Normal appearance. negative: Conjunctival injection, Periorbital swelling, Periorbital tenderness, Scleral icterus - ENT Ear exam: negative: Auricular hematoma, Auricular trauma Nasal Exam: negative: Active bleeding, Discharge, Dried blood, Foreign body Mouth exam: negative: Drooling, Laceration, Muffled voice, Tongue elevation - Neck Neck exam: Normal inspection. negative: Meningismus, Tenderness - Respiratory Respiratory exam: Normal lung sounds bilaterally. negative: Rales, Respiratory distress, Rhonchi, Stridor - Cardiovascular Cardiovascular Exam: Regular rate, Normal rhythm, Normal heart sounds - GI/Abdominal GI/Abdominal exam: Soft, Tenderness (Diffuse TTP on examination, no rebound, no guarding symptoms are present.). negative: Rebound, Rigid - Rectal Rectal exam: Deferred - exam: Deferred - Extremities Extremities exam: Normal inspection. negative: Pedal edema, Tenderness - Back Back exam: Denies: CVA tenderness (R), CVA tenderness (L) - Neurological Neurological exam: Alert, Normal gait, Oriented X3 - Psychiatric Psychiatric exam: Normal affect, Normal mood - Skin Skin exam: Normal color. negative: Abrasion Type of lesion: negative: abrasion Course Vital Signs 07/27/19 03:44 Temperature 97.3 F L Pulse Rate [ 98 H Pulse Ox Probe] Respiratory 24 Rate Blood Pressure 200/97 [Left Arm] Pulse Ox 100 - Reevaluation(s) Reevaluation #1: 07/27/19 03:53 Previous records from recent admission were reviewed: CT Abdomen and Pelvis 07/25/19: Left adenexal structure measuring 1.5 cm Otherwise negative for an acute process. Reevaluation #2: 07/27/19 04:24 Laboratory studies were reviewed and appear grossly unremarkable for an acute process except for the following: WBC 17.4, 90% Neutrophils Reevaluation #3: 07/27/19 04:38 Case was discussed with Dr. Kellogg, will accept transfer for further evaluation and treatment. Reevaluation #4: 07/27/19 06:00 Patient reports that she is feeling continuing nausea, pacing the room, 2nd dose of Zofran ordered to infuse. Will administer oral swabs for dry mouth symptoms. Medical Decision Making - Lab Data Result diagrams: 07/27/19 03:58 07/27/19 03:58 Disposition Disposition: Transfer Clinical Impression: Intractable nausea and vomiting, IDDM (insulin dependent diabetes mellitus), Gastroparesis Leukocytosis Qualifiers: Leukocytosis type: unspecified Qualified Code(s): D72.829 - Elevated white blood cell count, unspecified Disposition: Acute Care Hospital Transfer Transfer To: [facility] Reason For Transfer: GI Consultation Accepting Physician: Bess Time Discussed w/Accepting Physician: 04:39 Condition: (2) Stable Forms: Patient Portal Access Time of Disposition: 04:39 Quality - Quality Measures Quality Measures: N/A - Blood Pressure Screening Does Patient Have Any of the Following: Active Dx of HTN Blood Pressure Classification: Hypertensive Reading Systolic Measurement: 186 Diastolic Measurement: 90 Screening for High Blood Pressure: Patient Exclusion, Hx of HTN [[id number]]
[2019-07-27] MEDS ORDERED: 0.9 % SODIUM CHLORIDE 1000ML 1,000 ML IV SCH ×2 (04:00→06:30)
[2019-07-27 04:08] LABS: BASO % 0.2 % (0-6); HEMATOCRIT 42.6 % (35.0-47.0); HEMOGLOBIN 14.7 gm/dl (11.6-16.0); MEAN CELL VOLUME 86.4 fl (81-97); MEAN CORPUSCULAR HEMOGLOBIN 29.8 pg (27-33); MEAN CORPUSCULAR HGB CONC 34.5 g/dl (32-36); MEAN PLATELET VOLUME 9.5 fl (7.4-10.4); MONO % 1.3 % (0-9); PLATELET COUNT 384 K/uL (130-400); RED BLOOD COUNT 4.93 M/uL (3.80-5.40); RED CELL DISTRIBUTION WIDTH 12.3 % (11.5-14.5); WHITE BLOOD COUNT W/O DIFF 17.4 K/uL (4.2-12.2)
[2019-07-27] MEDS ORDERED: FENTANYL PF 100MCG/2ML VIAL IVP ONE (04:10)
[2019-07-27 04:20] LABS: BLOOD UREA NITROGEN 23 mg/dL (6-20); CREATININE 0.7 mg/dL (0.5-0.9); EST GLOMERULAR FILTRATION RATE > 60 mL/min
[2019-07-27 04:21] LABS: LIPASE 5 U/L (13-60); TOTAL PROTEIN 8.5 g/dL (6.6-8.7)
[2019-07-27 04:23] LABS: GLUCOSE,RANDOM 333 mg/dL (74-109)
[2019-07-27 04:26] LABS: ALB/GLOB RATIO 1.4 (1.1-1.8); ALBUMIN 4.9 g/dL (4.0-5.0); ALKALINE PHOSPHATASE 51 U/L (35-104); ALT/SGPT 13 U/L (<33); AST/SGOT 15 U/L (10.0-35.0)
[2019-07-27 04:40] LABS: ACETONE,SERUM SMALL (NEGATIVE)
[2019-07-27] MEDS ORDERED: LORAZEPAM 2 MG/ML VIAL IV ONE (06:16)
== END 2019-07-27 07:58 | disposition short-term general hospital (02) ==
LOC: ER 03:39
DX: E11.43 Type 2 diabetes mellitus with diabetic autonomic (poly)neuropathy (principal); K31.84 Gastroparesis; D72.829 Elevated white blood cell count, unspecified; R11.2 Nausea with vomiting, unspecified; R51 Headache; I10 Essential (primary) hypertension; Z79.4 Long term (current) use of insulin; Z87.891 Personal history of nicotine dependence
CPT/HCPCS: 80053; 82009; 82800; 83690; 85027; 96361; 96374; 96375; 96376; 99285; J1200; J2405; J2765; J7030